=== PATIENT | male | born 1930 | race Caucasian/White ===

== ENCOUNTER 2018-06-29 10:29 | Emergency (ER) | payer MEDICARE, BC ==
[2018-06-29 10:57] VITALS: RESP 18; TEMP 98.5
--- NOTE | 2018-06-29 11:04 | ED ---
General Adult HPI - General Chief complaint: Arrhythmia/Palpitations Stated complaint: HIGH HEART RATE Time Seen by Provider: 06/29/18 10:47 Source: patient, RN notes reviewed, old records reviewed Mode of arrival: wheelchair Limitations: no limitations - History of Present Illness Initial comments: 88-year-old male presented for evaluation of palpitations, racing heart, and mild dyspnea. Patient's symptoms began prior to arrival, he did check his blood pressure heart rate at home. He was noted to have a heart rate in the 140s. He has remote history of arrhythmia status post ablation proximally 5 years ago. Symptoms have resolved with time my evaluation. He no longer reports any dyspnea, he has no palpitations. Denies any pain complaints associated with this sensation of palpitations. Denies any lower extremity pain or swelling. Denies double pain nausea vomiting. Denies fever or chills. - Related Data Home Medications Medication Instructions Recorded Confirmed Atorvastatin [Lipitor] 10 mg PO DAILY@1200 06/29/18 06/29/18 Diltiazem HCl [Diltiazem 24Hr ER] 180 mg PO DAILY 06/29/18 06/29/18 Omeprazole [PriLOSEC] 40 mg PO DAILY 06/29/18 06/29/18 Vit C/E/Zn/Coppr/Lutein/Zeaxan 2 cap PO DAILY 06/29/18 06/29/18 [Preservision Areds 2 Softgel] Allergies Allergy/AdvReac Type Severity Reaction Status Date / Time erythromycin base AdvReac STOMACH Verified 06/29/18 11:07 CRAMPS Sulfa (Sulfonamide AdvReac LOW GRADE Verified 06/29/18 11:07 Antibiotics) FEVER Review of Systems ROS Statement: Those systems with pertinent positive or pertinent negative responses have been documented in the HPI. ROS Other: All systems not noted in ROS Statement are negative. Past Medical History Past Medical History: Hypertension Additional Past Medical History / Comment(s): Kidney disease, cardiac ablation History of Any Multi-Drug Resistant Organisms: None Reported Past Surgical History: Cholecystectomy Additional Past Surgical History / Comment(s): Thyroid surgery Past Psychological History: No Psychological Hx Reported Smoking Status: Former smoker Past Alcohol Use History: None Reported Past Drug Use History: None Reported General Exam Limitations: no limitations General appearance: alert, in no apparent distress Head exam: Present: atraumatic, normocephalic Eye exam: Present: normal appearance, PERRL ENT exam: Present: normal exam Neck exam: Present: normal inspection. Absent: tenderness, meningismus Respiratory exam: Present: normal lung sounds bilaterally. Absent: respiratory distress, wheezes, rales Cardiovascular Exam: Present: regular rate, normal rhythm GI/Abdominal exam: Present: soft. Absent: distended, tenderness, guarding, rebound Extremities exam: Present: normal inspection, normal capillary refill. Absent: pedal edema Neurological exam: Present: alert, oriented X3, CN II-XII intact. Absent: motor sensory deficit Psychiatric exam: Present: normal affect, normal mood Skin exam: Present: warm, dry, intact. Absent: cyanosis, diaphoretic Course Vital Signs 06/29/18 06/29/18 10:53 10:57 Temperature 98.5 F Pulse Rate 90 Pulse Rate [ 100 Refrigerator Assembler ] Respiratory 18 Rate Blood Pressure 122/72 EKG Findings - EKG Comments: EKG Findings:: EKG: Normal sinus rhythm, rate of 90, WI interval 166, QRS duration 82, QTC 43, sinus mechanism, no arrhythmia, no definitive signs of ischemia, no ST segment elevation Medical Decision Making - Medical Decision Making 88-year-old male with an episode of palpitations. Symptoms resolved with time my evaluation. EKG is normal sinus rhythm no ischemic changes. No pain associated with palpitations. He does have some mild dyspnea which is also resolved. He does have history of arrhythmia status post ablation approximate 5 years ago, currently on diltiazem. Denies missing any doses. He, CMP does show creatinine 1.75 which is baseline for this patient with history of chronic kidney disease. Normal electrolytes. Negative troponin. Patient observed on the monitor for 2 half hours, no arrhythmia. Did reevaluate the patient, resting comfortably with stable vitals. He is eager for discharge. He will follow-up with his java architect, return with worsening or changing symptoms. - Lab Data Result diagrams: 06/29/18 11:15 06/29/18 11:15 Lab Results 06/29/18 06/29/18 06/29/18 Range/Units 11:15 11:15 11:15 WBC 9.8 (3.8-10.6) k/uL RBC 3.89 L (4.30-5.90) m/uL Hgb 12.6 L (13.0-17.5) gm/dL Hct 38.9 L (39.0-53.0) % MCV 99.9 (80.0-100.0) fL MCH 32.5 (25.0-35.0) pg MCHC 32.5 (31.0-37.0) g/dL RDW 13.1 (11.5-15.5) % Plt Count 268 (150-450) k/uL Neutrophils % 74 % Lymphocytes % 14 % Monocytes % 7 % Eosinophils % 2 % Basophils % 1 % Neutrophils # 7.2 (1.3-7.7) k/uL Lymphocytes # 1.4 (1.0-4.8) k/uL Monocytes # 0.7 (0-1.0) k/uL Eosinophils # 0.2 (0-0.7) k/uL Basophils # 0.1 (0-0.2) k/uL PT 10.8 (9.0-12.0) sec INR 1.0 (<1.2) APTT 25.0 (22.0-30.0) sec Sodium 143 (137-145) mmol/L Potassium 4.7 (3.5-5.1) mmol/L Chloride 110 H (98-107) mmol/L Carbon Dioxide 25 (22-30) mmol/L Anion Gap 8 mmol/L BUN 25 H (9-20) mg/dL Creatinine 1.75 H (0.66-1.25) mg/dL Est GFR (CKD-EPI)AfAm 40 (>60 ml/min/1.73 sqM) Est GFR (CKD-EPI)NonAf 34 (>60 ml/min/1.73 sqM) Glucose 81 (74-99) mg/dL Calcium 9.5 (8.4-10.2) mg/dL Magnesium 2.0 (1.6-2.3) mg/dL Total Bilirubin 0.9 (0.2-1.3) mg/dL AST 26 (17-59) U/L ALT 23 (21-72) U/L Alkaline Phosphatase 78 (38-126) U/L Troponin I (0.000-0.034) ng/mL Total Protein 6.4 (6.3-8.2) g/dL Albumin 3.5 (3.5-5.0) g/dL 06/29/18 Range/Units 11:15 WBC (3.8-10.6) k/uL RBC (4.30-5.90) m/uL Hgb (13.0-17.5) gm/dL Hct (39.0-53.0) % MCV (80.0-100.0) fL MCH (25.0-35.0) pg MCHC (31.0-37.0) g/dL RDW (11.5-15.5) % Plt Count (150-450) k/uL Neutrophils % % Lymphocytes % % Monocytes % % Eosinophils % % Basophils % % Neutrophils # (1.3-7.7) k/uL Lymphocytes # (1.0-4.8) k/uL Monocytes # (0-1.0) k/uL Eosinophils # (0-0.7) k/uL Basophils # (0-0.2) k/uL PT (9.0-12.0) sec INR (<1.2) APTT (22.0-30.0) sec Sodium (137-145) mmol/L Potassium (3.5-5.1) mmol/L Chloride (98-107) mmol/L Carbon Dioxide (22-30) mmol/L Anion Gap mmol/L BUN (9-20) mg/dL Creatinine (0.66-1.25) mg/dL Est GFR (CKD-EPI)AfAm (>60 ml/min/1.73 sqM) Est GFR (CKD-EPI)NonAf (>60 ml/min/1.73 sqM) Glucose (74-99) mg/dL Calcium (8.4-10.2) mg/dL Magnesium (1.6-2.3) mg/dL Total Bilirubin (0.2-1.3) mg/dL AST (17-59) U/L ALT (21-72) U/L Alkaline Phosphatase (38-126) U/L Troponin I <0.012 (0.000-0.034) ng/mL Total Protein (6.3-8.2) g/dL Albumin (3.5-5.0) g/dL Disposition Clinical Impression: Palpitations Disposition: HOME SELF-CARE Condition: Good Instructions (If sedation given, give patient instructions): Heart Palpitations (ED) Is patient prescribed a controlled substance at d/c from ED?: No Referrals: Tatyana Hanson MD [Primary Care Provider] - 1-2 days Fozia Golden MD [STAFF PHYSICIAN] - 1-2 days Time of Disposition: 13:06
--- NOTE | 2018-06-29 11:37 | XR ---
EXAMINATION TYPE: XR chest 2V DATE OF EXAM: 06/29/2018 HISTORY: dysrhythmia. REFERENCE: Previous study dated 02/28/2011. FINDINGS: Lung volumes are prominent. The heart is normal in size. Pleural spaces are clear. IMPRESSION: PLEASE CORRELATE FOR COPD.
[2018-06-29 11:59] LABS: Basophils # (A) 0.1 k/uL (0-0.2); Basophils % (A) 1 %; Eosinophils # (A) 0.2 k/uL (0-0.7); Eosinophils % (A) 2 %; HCT 38.9 % (39.0-53.0); HGB 12.6 gm/dL (13.0-17.5); Lymphocytes # (A) 1.4 k/uL (1.0-4.8); Lymphocytes % (A) 14 %; MCH 32.5 pg (25.0-35.0); MCHC 32.5 g/dL (31.0-37.0); MCV 99.9 fL (80.0-100.0); Mean Platelet Volume 6.6; Monocytes # (A) 0.7 k/uL (0-1.0); Monocytes % (A) 7 %; Neutrophils # (A) 7.2 k/uL (1.3-7.7); Neutrophils % (A) 74 %; Platelet Count 268 k/uL (150-450); RBC 3.89 m/uL (4.30-5.90); RDW 13.1 % (11.5-15.5); WBC 9.8 k/uL (3.8-10.6)
[2018-06-29 12:05] LABS: Prothrombin Time 10.8 sec (9.0-12.0)
[2018-06-29 12:59] LABS: Albumin 3.5 g/dL (3.5-5.0); Calcium 9.5 mg/dL (8.4-10.2); Potassium 4.7 mmol/L (3.5-5.1); Total Bilirubin 0.9 mg/dL (0.2-1.3); Total Protein 6.4 g/dL (6.3-8.2)
[2018-06-29 13:21] VITALS: BP 121/67; PULSE 73
== END 2018-06-29 13:21 | disposition home or self-care (01) ==
LOC: EC 10:29
DX: R00.2 Palpitations (principal); R00.0 Tachycardia, unspecified; R06.00 Dyspnea, unspecified; I12.9 Hypertensive chronic kidney disease with stage 1 through stage 4 chronic kidney disease, or unspecified chronic kidney disease; N18.9 Chronic kidney disease, unspecified; I49.9 Cardiac arrhythmia, unspecified; Z98.890 Other specified postprocedural states; Z87.891 Personal history of nicotine dependence; Z79.899 Other long term (current) drug therapy; Z88.1 Allergy status to other antibiotic agents; Z88.2 Allergy status to sulfonamides
CPT/HCPCS: 36415; 71046; 80053; 83735; 84484; 85025; 85610; 85730; 93005; 99285

== ENCOUNTER → 2019-11-28 | Outpatient (CLI) | payer MEDICARE, BC ==
--- NOTE | 2019-11-29 07:36 | US ---
EXAMINATION TYPE: US kidneys/renal and bladder DATE OF EXAM: 11/28/2019 COMPARISON: US CLINICAL HISTORY: N18.3 Chronic kidney disease. CKD EXAM MEASUREMENTS: Right Kidney: 9.2 x 4.6 x 4.5 cm Left Kidney: 9.0 x 4.2 x 3.3 cm Right Kidney: Multicystic, largest cyst measured= 3.5 x 2.8 x 3.3 cm Left Kidney: Multicystic, largest cyst measured= 4.3 x 4.0 x 3.9 cm Bladder: Pt states he is incontinent and unable to fill/hold urine within his bladder, unable to visu fernando There is no evidence for hydronephrosis at this point in time. No nephrolithiasis is seen. No solid masses are identified. IMPRESSION: Multiple large bilateral renal cysts.
== END | disposition home or self-care (01) ==
LOC: RADUSWWP 16:14
PROVIDERS: ATTEND Internal Medicine Nephrology
DX: N28.1 Cyst of kidney, acquired (principal); N18.3 Chronic kidney disease, stage 3 (moderate)
CPT/HCPCS: 76770

== ENCOUNTER 2020-09-19 17:02 | Inpatient (IN) | payer MEDICARE, BC ==
--- NOTE | 2020-09-19 17:15 | ED ---
General Adult HPI - General Chief complaint: Chest Pain Stated complaint: STEMI Time Seen by Provider: 09/19/20 17:08 Source: patient, RN/MD, EMS, old records reviewed Mode of arrival: EMS Limitations: no limitations - History of Present Illness Initial comments: Patient was transferred to our ED from the [facility] ED for STEMI. Dr. Lopez (chalk cutter) was contacted from [facility] and he is aware that the patient is being transferred for a STEMI. clinical laboratory scientist was activated prior to the patient's arrival to the ED. Patient reports having constant left-sided chest pain radiating to his left arm for the past 8 or 9 hours or so. Patient has been given 4 baby aspirin, 2 sublingual nitroglycerin, an IV heparin bolus and is currently on an IV heparin drip. Patient states that his chest pain is currently 5/10 in severity. Patient denies trauma or injury, fever or chills, headache, focal neuro deficit, neck/jaw/back pain, neck, cough or cold symptoms, palpitations, dizziness, nausea/vomiting/diaphoresis, abdominal pain, leg or calf swelling or pain, or any other symptoms or complaints. Patient's troponin (obtained at [facility]) was 4. - Related Data Home Medications Medication Instructions Recorded Confirmed Atorvastatin [Lipitor] 10 mg PO DAILY 06/29/18 09/19/20 Diltiazem HCl [Diltiazem 24Hr ER] 180 mg PO DAILY 06/29/18 09/19/20 Vit C/E/Zn/Coppr/Lutein/Zeaxan 2 cap PO DAILY 06/29/18 09/19/20 [Preservision Areds 2 Softgel] Flecainide [Tambocor] 50 mg PO BID 11/13/18 09/19/20 Allergies Allergy/AdvReac Type Severity Reaction Status Date / Time erythromycin base AdvReac STOMACH Verified 09/19/20 17:42 CRAMPS Sulfa (Sulfonamide AdvReac LOW GRADE Verified 09/19/20 17:42 Antibiotics) FEVER Review of Systems ROS Statement: Those systems with pertinent positive or pertinent negative responses have been documented in the HPI. ROS Other: All systems not noted in ROS Statement are negative. Past Medical History Past Medical History: Hypertension, Renal Disease Additional Past Medical History / Comment(s): Kidney disease, cardiac ablation History of Any Multi-Drug Resistant Organisms: None Reported Past Surgical History: Cholecystectomy Additional Past Surgical History / Comment(s): Thyroid surgery Past Anesthesia/Blood Transfusion Reactions: No Reported Reaction Past Psychological History: No Psychological Hx Reported Smoking Status: Former smoker Past Alcohol Use History: None Reported Past Drug Use History: None Reported General Exam Limitations: no limitations General appearance: alert, in no apparent distress Head exam: Present: atraumatic, normocephalic Eye exam: Present: normal appearance, EOMI ENT exam: Present: mucous membranes moist Neck exam: Present: other (Trachea is in midline) Respiratory exam: Present: normal lung sounds bilaterally. Absent: respiratory distress, wheezes, rales, rhonchi, stridor, chest wall tenderness Cardiovascular Exam: Present: regular rate, normal rhythm, normal heart sounds, other (Normal radial pulses bilaterally) GI/Abdominal exam: Present: soft. Absent: distended, tenderness, guarding Extremities exam: Absent: tenderness, pedal edema, calf tenderness Neurological exam: Present: alert, oriented X3. Absent: motor sensory deficit Psychiatric exam: Present: normal affect, normal mood Skin exam: Present: warm, dry, intact, normal color Course Vital Signs 09/19/20 09/19/20 17:06 17:07 Pulse Rate 96 99 Respiratory 16 16 Rate Blood Pressure 144/75 O2 Sat by Pulse 94 L 94 L Oximetry - Reevaluation(s) Reevaluation #1: 09/19/20 17:11 Case and faxed EKG findings (from the [facility]) were discussed with Dr. Lopez (chalk cutter) prior to patient's transfer from [facility]. Dr. Lopez asked that I evaluate the patient in the ED prior to sending the patient to the Mcat Instructor given his age and poor renal function. After ED evaluation of the patient, I called Dr. Lopez and told him that the patient continues to have ST elevations in leads V2 and V3 and he reports having constant chest pain since about 8 or 9 AM this morning. I also told him that the patient reports that his chest pain is currently 5/10 in severity. Given this information, Dr. Lopez recommends taking the patient to the Mcat Instructor. He has no further recommendations at this time. 09/19/20 17:18 Case, H&P, EKG findings and my discussion with Dr. Lopez as above were discussed with Dr. Ambriz. He accepts hospital admission. He has no further recommendations at this time. EKG Findings - EKG Comments: EKG Findings:: Normal sinus rhythm, ventricular rate of 96 bpm, no ectopy, incomplete right bundle branch block, leftward axis, normal LA and QRS intervals, normal QT interval, ST elevations are noted in leads V2 and V3 Medical Decision Making - Medical Decision Making After a quick stop/evaluation in the ED with a repeat EKG obtained, Dr. Lopez was contacted and recommended taking the patient to the aquatic life laborer. Patient was quickly taken to the Mcat Instructor with the aquatic life laborer staff already in the hospital and prepared for the patient. - Lab Data Result diagrams: 09/19/20 17:13 09/19/20 17:13 Lab Results 09/19/20 09/19/20 09/19/20 Range/Units 17:13 17:13 17:13 WBC 11.7 H (3.8-10.6) k/uL RBC 3.77 L (4.30-5.90) m/uL Hgb 12.0 L (13.0-17.5) gm/dL Hct 36.4 L (39.0-53.0) % MCV 96.7 (80.0-100.0) fL MCH 31.8 (25.0-35.0) pg MCHC 32.9 (31.0-37.0) g/dL RDW 13.2 (11.5-15.5) % Plt Count 223 (150-450) k/uL MPV 7.8 Neutrophils % 79 % Lymphocytes % 11 % Monocytes % 7 % Eosinophils % 1 % Basophils % 0 % Neutrophils # 9.3 H (1.3-7.7) k/uL Lymphocytes # 1.3 (1.0-4.8) k/uL Monocytes # 0.8 (0-1.0) k/uL Eosinophils # 0.1 (0-0.7) k/uL Basophils # 0.0 (0-0.2) k/uL PT 11.1 (9.0-12.0) sec INR 1.1 (<1.2) APTT 97.1 H (22.0-30.0) sec Sodium 141 (137-145) mmol/L Potassium 4.2 (3.5-5.1) mmol/L Chloride 106 (98-107) mmol/L Carbon Dioxide 26 (22-30) mmol/L Anion Gap 9 mmol/L BUN 41 H (9-20) mg/dL Creatinine 2.22 H (0.66-1.25) mg/dL Est GFR (CKD-EPI)AfAm 29 (>60 ml/min/1.73 sqM) Est GFR (CKD-EPI)NonAf 25 (>60 ml/min/1.73 sqM) Glucose 107 H (74-99) mg/dL Calcium 9.2 (8.4-10.2) mg/dL Magnesium 2.1 (1.6-2.3) mg/dL Total Bilirubin 0.7 (0.2-1.3) mg/dL AST 49 (17-59) U/L ALT 22 (4-49) U/L Alkaline Phosphatase 79 (38-126) U/L Troponin I (0.000-0.034) ng/mL NT-Pro-B Natriuret Pep pg/mL Total Protein 6.7 (6.3-8.2) g/dL Albumin 4.0 (3.5-5.0) g/dL 09/19/20 09/19/20 Range/Units 17:13 17:13 WBC (3.8-10.6) k/uL RBC (4.30-5.90) m/uL Hgb (13.0-17.5) gm/dL Hct (39.0-53.0) % MCV (80.0-100.0) fL MCH (25.0-35.0) pg MCHC (31.0-37.0) g/dL RDW (11.5-15.5) % Plt Count (150-450) k/uL MPV Neutrophils % % Lymphocytes % % Monocytes % % Eosinophils % % Basophils % % Neutrophils # (1.3-7.7) k/uL Lymphocytes # (1.0-4.8) k/uL Monocytes # (0-1.0) k/uL Eosinophils # (0-0.7) k/uL Basophils # (0-0.2) k/uL PT (9.0-12.0) sec INR (<1.2) APTT (22.0-30.0) sec Sodium (137-145) mmol/L Potassium (3.5-5.1) mmol/L Chloride (98-107) mmol/L Carbon Dioxide (22-30) mmol/L Anion Gap mmol/L BUN (9-20) mg/dL Creatinine (0.66-1.25) mg/dL Est GFR (CKD-EPI)AfAm (>60 ml/min/1.73 sqM) Est GFR (CKD-EPI)NonAf (>60 ml/min/1.73 sqM) Glucose (74-99) mg/dL Calcium (8.4-10.2) mg/dL Magnesium (1.6-2.3) mg/dL Total Bilirubin (0.2-1.3) mg/dL AST (17-59) U/L ALT (4-49) U/L Alkaline Phosphatase (38-126) U/L Troponin I 4.920 H* (0.000-0.034) ng/mL NT-Pro-B Natriuret Pep 95794 pg/mL Total Protein (6.3-8.2) g/dL Albumin (3.5-5.0) g/dL - Radiology Data Radiology results: report reviewed (Chest x-ray: There are new minimal infiltrates in the left lower lobe compared to old exam) Critical Care Time Critical Care Time: Yes Total Critical Care Time: 20 Disposition Clinical Impression: STEMI (ST elevation myocardial infarction), Chronic renal insufficiency Disposition: ADMITTED IP TO THIS HOSP Condition: Stable Is patient prescribed a controlled substance at d/c from ED?: No Time of Disposition: 17:24
[2020-09-19 17:23] LABS: Basophils % (A) 0 %; Eosinophils # (A) 0.1 k/uL (0-0.7); Eosinophils % (A) 1 %; HCT 36.4 % (39.0-53.0); Lymphocytes # (A) 1.3 k/uL (1.0-4.8); Lymphocytes % (A) 11 %; MCH 31.8 pg (25.0-35.0); MCHC 32.9 g/dL (31.0-37.0); MCV 96.7 fL (80.0-100.0); Mean Platelet Volume 7.8; Monocytes # (A) 0.8 k/uL (0-1.0); Monocytes % (A) 7 %; Neutrophils # (A) 9.3 k/uL (1.3-7.7); Neutrophils % (A) 79 %; Platelet Count 223 k/uL (150-450); RBC 3.77 m/uL (4.30-5.90); RDW 13.2 % (11.5-15.5); WBC 11.7 k/uL (3.8-10.6)
[2020-09-19] MEDS ORDERED: SODIUM CHLORIDE 0.9% 1,000 ML IV ONE (17:25)
[2020-09-19] MEDS ORDERED: fentaNYL (PF) 50 MCG/ML 2 ML AMP ONE (17:29)
[2020-09-19] MEDS ORDERED: fentaNYL (PF) 50 MCG/ML 2 ML AMP IV ONE (17:30)
[2020-09-19 17:31] LABS: Calcium 9.2 mg/dL (8.4-10.2); Magnesium 2.1 mg/dL (1.6-2.3); Potassium 4.2 mmol/L (3.5-5.1); Total Bilirubin 0.7 mg/dL (0.2-1.3); Total Protein 6.7 g/dL (6.3-8.2)
[2020-09-19] MEDS ORDERED: LIDOCAINE 1% INJ 10MG/ML (20 ML MDV) SQ ONE (17:33)
--- NOTE | 2020-09-19 17:41 | XR ---
EXAMINATION TYPE: XR chest 1V portable DATE OF EXAM: 09/19/2020 COMPARISON: 06/29/2018 HISTORY: Chest pain TECHNIQUE: FINDINGS: Heart is enlarged. There is some mild infiltrate in left lower lobe. There is no heart fail ure. Thoracic aorta is atheromatous. There are chest leads. Bony thorax is intact. IMPRESSION: There are new minimal infiltrates in the left lower lobe compared to old exam.
[2020-09-19] MEDS ORDERED: HEPARIN SODIUM 1,000 UN/ML (10ML VL) ONE (17:43)
[2020-09-19] MEDS ORDERED: HEPARIN SODIUM 1,000 UN/ML (10ML VL) IV ONE (17:44)
[2020-09-19 17:50] LABS: INR 1.1 (<1.2); Prothrombin Time 11.1 sec (9.0-12.0)
[2020-09-19] MEDS ORDERED: NITROGLYCERIN 1000MCG/10ML SYRINGE INTRACORON ONE (17:50)
[2020-09-19 17:52] LABS: Partial Thromboplastin Time 97.1 sec (22.0-30.0)
[2020-09-19] MEDS ORDERED: CLOPIDOGREL 75 MG TAB ONE (17:52)
[2020-09-19] MEDS ORDERED: HYDROmorphone 0.5 MG/0.5 ML SYRINGE IVP ONE (17:53)
[2020-09-19] MEDS ORDERED: ONDANSETRON 4 MG/2 ML VIAL ONE (17:54)
[2020-09-19] MEDS ORDERED: ONDANSETRON 4 MG/2 ML VIAL IVP ONE (17:56)
[2020-09-19] MEDS ORDERED: CLOPIDOGREL 75 MG TAB PO ONE (17:57)
[2020-09-19] MEDS ORDERED: IOPAMIDOL-370 125ML BTL INJ ONE (17:57)
[2020-09-19] MEDS ORDERED: RX INFO: IV CONTRAST WAS GIVEN 1 EACH MISC MISCELLANE PRN (18:02)
[2020-09-19] MEDS ORDERED: ZOLPIDEM 5 MG TAB PO PRN (18:02)
[2020-09-19] MEDS ORDERED: NITROGLYCERIN SL TABS 0.4 MG TAB SUBLINGUAL PRN (18:02)
[2020-09-19] MEDS ORDERED: MAG HYDROX/AL HYDROX/SIMETH 30 ML CUP PO PRN (18:02)
[2020-09-19] MEDS ORDERED: ATROPINE SULFATE 0.1 MG/ML 10ML SYRINGE IV PRN (18:02)
--- NOTE | 2020-09-19 18:12 | P.CRDCN ---
History of Present Illness Consult date: 09/19/20 Chief complaint: chest pain History of present illness: This is a very pleasant 89-year-old gentleman who was in good physical and mental shape with a past medical history significant for hypertension as well as chronic kidney disease who presented to [facility] complaining of chest discomfort started about 6 hours before. The patient described the discomfort as a pressure across the chest with radiation to the left arm. No associated symptoms of sweating or syncope or shortness of breath or dizziness or lightheadedness. The initial EKG revealed sinus rhythm with ST segment elevation in the anteroseptal leads. Because the patient continues to have a chest discomfort and because of the EKG which was concerning for STEMI he was transferred for emergent heart catheterization here at [facility]. Emergent heart catheterization revealed critical disease involving the mid LAD which was opened and stented with an a good angiographic results was BESS-3 flow. By the end of the procedure the patient was chest pain-free. The procedure was performed from the right groin. The patient will be on dual antiplatelet therapy along with high intensity statin along with anti-ischemic medication and he will be admitted to the hospital for observation. We'll obtain an echocardiogram to establish LV function. Past Medical History Past Medical History: Hypertension, Renal Disease Additional Past Medical History / Comment(s): Kidney disease, cardiac ablation History of Any Multi-Drug Resistant Organisms: None Reported Past Surgical History: Cholecystectomy Additional Past Surgical History / Comment(s): Thyroid surgery Past Anesthesia/Blood Transfusion Reactions: No Reported Reaction Past Psychological History: No Psychological Hx Reported Smoking Status: Former smoker Past Alcohol Use History: None Reported Past Drug Use History: None Reported Medications and Allergies Home Medications Medication Instructions Recorded Confirmed Type Atorvastatin [Lipitor] 10 mg PO DAILY 06/29/18 09/19/20 History Diltiazem HCl [Diltiazem 24Hr ER] 180 mg PO DAILY 06/29/18 09/19/20 History Vit C/E/Zn/Coppr/Lutein/Zeaxan 2 cap PO DAILY 06/29/18 09/19/20 History [Preservision Areds 2 Softgel] Flecainide [Tambocor] 50 mg PO BID 11/13/18 09/19/20 History Allergies Allergy/AdvReac Type Severity Reaction Status Date / Time erythromycin base AdvReac STOMACH Verified 09/19/20 17:42 CRAMPS Sulfa (Sulfonamide AdvReac LOW GRADE Verified 09/19/20 17:42 Antibiotics) FEVER Physical Exam Vitals: Vital Signs Pulse Resp BP Pulse Ox 09/19/20 17:07 99 16 94 L 09/19/20 17:06 96 16 144/75 94 L Intake and Output 09/19/20 09/19/20 09/19/20 06:59 14:59 22:59 Intake Total 50 Balance 50 Intake: IV 50 Other: Weight 68.1 kg - Constitutional General appearance: no acute distress - Respiratory Respiratory: bilateral: diminished - Cardiovascular Rhythm: regular Heart sounds: normal: S1, S2 Abnormal Heart Sounds: systolic murmur Results 09/19/20 17:13 09/19/20 17:13 Cardiac Enzymes 09/19/20 09/19/20 Range/Units 17:13 17:13 AST 49 (17-59) U/L Troponin I 4.920 H* (0.000-0.034) ng/mL Coagulation 09/19/20 Range/Units 17:13 PT 11.1 (9.0-12.0) sec APTT 97.1 H (22.0-30.0) sec CBC 09/19/20 Range/Units 17:13 WBC 11.7 H (3.8-10.6) k/uL RBC 3.77 L (4.30-5.90) m/uL Hgb 12.0 L (13.0-17.5) gm/dL Hct 36.4 L (39.0-53.0) % Plt Count 223 (150-450) k/uL Comprehensive Metabolic Panel 09/19/20 Range/Units 17:13 Sodium 141 (137-145) mmol/L Potassium 4.2 (3.5-5.1) mmol/L Chloride 106 (98-107) mmol/L Carbon Dioxide 26 (22-30) mmol/L BUN 41 H (9-20) mg/dL Creatinine 2.22 H (0.66-1.25) mg/dL Glucose 107 H (74-99) mg/dL Calcium 9.2 (8.4-10.2) mg/dL AST 49 (17-59) U/L ALT 22 (4-49) U/L Alkaline Phosphatase 79 (38-126) U/L Total Protein 6.7 (6.3-8.2) g/dL Albumin 4.0 (3.5-5.0) g/dL Intake and Output 09/19/20 09/19/20 09/19/20 06:59 14:59 22:59 Intake Total 50 Balance 50 Intake: IV 50 Other: Weight 68.1 kg Patient Weight 09/20/20 06:59 Weight 68.1 kg 09/19/20 17:13 09/19/20 17:13 Assessment and Plan Assessment: Assessment #[address] patient myocardial infarction #2 hypertension #3 chronic kidney disease Plan #1 the patient underwent stenting of the LAD #2 we'll obtain an echocardiogram to establish LV function #3 standard to groin care #4 dual antiplatelet therapy #5 aggressive cholesterol control #6 anti-ischemic medication Thank you for allowing us participate in his care
--- NOTE | 2020-09-19 19:30 | CC ---
CARDIAC CATHETERIZATION REPORT DATE OF SERVICE: 09/19/2020 PERFORMING PHYSICIAN: Tommy Lopez MD. PROCEDURE PERFORMED: 1. Selective left and right coronary angiogram. 2. Successful stenting of the mid left anterior descending artery using 3.0 x 18 mm Xience drug-eluting stent which was post-dilated using 3.5 mm NC balloon with an excellent angiographic results and reduction of stenosis from 99% to 0%. 3. Left heart catheterization. 4. Selective right common femoral artery angiogram. INDICATION: This is a very pleasant 89-year-old male patient who is in good physical and mental shape who presented initially to [facility] with chest discomfort and EKG concerning for anterior ST-elevation myocardial infarction. Because of that, he was transferred to [facility] for an emergent heart catheterization. APPROACH: Right common femoral artery. COMPLICATION: None. LEVEL OF SEDATION: Moderate with sedation length of 26 minutes. Door to door to balloon is 195 minutes. PROCEDURE DESCRIPTION: After obtaining an informed consent, the patient was brought to the cardiac wharf labourer. The right common femoral artery was cannulated using micropuncture technique, the micropuncture wire passed easily. Then I placed a 6-Persian sheath in the right common femoral artery. At that point, ACT check was performed. Selective left and right coronary angiogram performed using JL 3.5 and JR4 3.5 catheters. After that, I did intervene on the left anterior descending artery. Please see a separate paragraph for that. After that, I did left heart catheterization. I did after that left selective right common femoral artery angiogram. The procedure was completed without any complication. SELECTIVE CORONARY ANGIOGRAM: 1. The right coronary artery is a medium caliber vessel and it is a nondominant vessel. The RCA has a lesion in the midportion appeared to be in the range of 60% to 70%. 2. The left main is a short left main but angiographically normal. It bifurcates into a dominant left circumflex as well as LAD. 3. The LCX is a large caliber vessel. It is a dominant vessel. The proximal left circumflex has a lesion appeared to be in the range of 30% to 40%. The mid left circumflex appeared to be angiographically normal and the circumflex distally is normal and bifurcates into PDA and PLV branches both appeared to be angiographically normal. The left circumflex gives rise into first and second obtuse marginal branches. Both appeared to be angiographically normal. 4. The LAD: The very proximal LAD appeared to have mild disease only. The mid LAD has a critical lesion appeared to be in the range of 90-95 percent with a thrombus burden. The mid LAD and after that distal LAD appeared to have mild disease only. The LAD gives rise into 3 diagonal branches. HEMODYNAMICS: The LVEDP was 13 mmHg without significant gradient across the aortic valve. PCI OF THE LAD: Anticoagulation was achieved using only heparin with continuous ACT monitoring throughout the procedure. I did engage the left main using JL3.5 short tip guiding catheter. After that, I did wire the LAD using a Whisper wire. Balloon angioplasty was achieved using 2.5 x 12 mm balloon before I deployed 3.0 x 18 mm Xience drug-eluting stent where the stent was positioned under fluoroscopy guidance and deployed under its nominal pressure. Postdilatation was performed using a 3.5 mm NC balloon. The procedure was completed at that point with an excellent angiographic results. CONCLUSION: 1. Acute anterior ST-elevation myocardial infarction in this 89-year-old gentleman who presented initially to [facility]. 2. 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 I performed successful stenting of the mid LAD with excellent angiographic results. 3. Normal LVEDP. POSTPROCEDURE MANAGEMENT: 1. Dual anti-platelet therapy. 2. Aggressive cholesterol control. 3. An echocardiogram to assess the ejection fraction. 4. Follow up with the patient. IDRIS / CRISTIANO: [id number] /
[2020-09-19] MEDS: ATORVASTATIN 80 MG TAB PO SCH (21:30)
[2020-09-19] MEDS: METOPROLOL TARTRATE 25 MG TAB PO SCH (21:30)
[2020-09-20 08:34] LABS: Albumin 2.9 g/dL (3.5-5.0); Calcium 8.4 mg/dL (8.4-10.2); Potassium 4.7 mmol/L (3.5-5.1); Total Bilirubin 1.1 mg/dL (0.2-1.3); Total Protein 5.3 g/dL (6.3-8.2)
[2020-09-20] MEDS: METOPROLOL TARTRATE 25 MG TAB PO SCH ×2 (08:35→19:57)
[2020-09-20] MEDS: ASPIRIN 81 MG PO SCH (08:35)
[2020-09-20 09:19] LABS: Basophils % (A) 0 %; Eosinophils % (A) 0 %; HCT 35.9 % (39.0-53.0); HGB 11.1 gm/dL (13.0-17.5); Lymphocytes % (A) 6 %; MCH 31.5 pg (25.0-35.0); MCV 101.6 fL (80.0-100.0); Macrocytosis Slight; Mean Platelet Volume 8.1; Monocytes # (A) 1.3 k/uL (0-1.0); Monocytes % (A) 8 %; Neutrophils # (A) 13.5 k/uL (1.3-7.7); Neutrophils % (A) 84 %; Platelet Count 196 k/uL (150-450); RBC 3.54 m/uL (4.30-5.90); RDW 13.3 % (11.5-15.5); WBC 16.2 k/uL (3.8-10.6)
[2020-09-20 11:06] VITALS: BMI 21.4
--- NOTE | 2020-09-20 11:10 | ECHOF ---
Referral Reason:STEMI MEASUREMENTS -------- HEIGHT: 175.3 cm WEIGHT: 65.8 kg BP: 111/71 IVSd: 0.9 cm (0.6 - 1.1) LVIDd: 4.3 cm (3.9 - 5.3) LVPWd: 0.9 cm (0.6 - 1.1) IVSs: 1.2 cm LVIDs: 3.9 cm LVPWs: 1.3 cm Ao Diam: 4.1 cm (2.0 - 3.7) AV Cusp: 1.7 cm (1.5 - 2.6) LA Diam: 3.1 cm (2.7 - 3.8) MV E Walter: 0.55 m/s MV DecT: 150 ms MV A Walter: 0.55 m/s MV E/A Ratio: 1.00 AR PHT: 710 ms RAP: 5.00 mmHg RVSP: 26.66 mmHg FINDINGS -------- Sinus rhythm. This was a technically difficult study with suboptimal views. The left ventricular size is normal. Left ventricular wall thickness is normal. Overall left vent ricular systolic function is severely impaired with, an EF between 20 - 25 %. Mid anterior LV wall motion is akinetic. Mid lateral LV wall motion is akinetic. Mid anteroseptal LV wall motion is akinetic. Apical anterior LV wall motion is akinetic. Apical lateral LV wall motion is akinetic . Apical inferior LV wall motion is akinetic. Apical septum LV wall motion is akinetic. The RV was not well visualized. The left atrial size is normal. The right atrium was not well visualized. Lumason used The aortic valve was not well visualized. There is moderate aortic regurgitation. Mild mitral annular calcification present. There is trace mitral regurgitation. The tricuspid valve appears structurally normal. Moderate tricuspid regurgitation present. Right ventricular systolic pressure is normal at < 35 mmHg. The pulmonic valve was not well visualized. The aortic root size is normal. Normal inferior vena cava with normal inspiratory collapse consistent with estimated right atrial pre ssure of 5 mmHg. There is no pericardial effusion. CONCLUSIONS -------- 1. This was a technically difficult study with suboptimal views. 2. The left ventricular size is normal. 3. Left ventricular wall thickness is normal. 4. Overall left ventricular systolic function is severely impaired with, an EF between 20 - 25 %. 5. Mid anterior LV wall motion is akinetic. 6. Mid lateral LV wall motion is akinetic. 7. Mid anteroseptal LV wall motion is akinetic. 8. Apical anterior LV wall motion is akinetic. 9. Apical lateral LV wall motion is akinetic. 10. Apical inferior LV wall motion is akinetic. 11. Apical septum LV wall motion is akinetic. 12. The left atrial size is normal. 13. There is moderate aortic regurgitation. 14. There is trace mitral regurgitation. 15. Moderate tricuspid regurgitation present. 16. There is no pericardial effusion. WILDLIFE ECOLOGY PROFESSOR: Catie Monk RDCS
--- NOTE | 2020-09-20 12:13 | P.PN ---
Subjective This is a very pleasant 89-year-old gentleman with a past medical history significant for hypertension, chronic kidney disease. He does not have a history of Diabetes, [place], stroke, or coronary artery disease. He presented to [facility] complaining of chest discomfort started about 6 hours before. The patient described the discomfort as a pressure across the chest with radiation to the left arm. The initial EKG revealed sinus rhythm with ST segment elevation in the anteroseptal leads. Because the patient continues to have a chest discomfort a nd because of the EKG which was concerning for STEMI he was transferred for emergent heart catheterization here at [facility]. Patient underwent heart catheterization on 09/19/[address] Lopez which revealed critical disease involving the mid LAD which was stented. The procedure was performed from the right groin. 09/20/2020: Patient seen and examined at bedside, no acute distress. Sitting up in the bedside chair. He does have some mild shortness of breath with deep breathing. Patient is ambulating in the room Blood pressure 92/54, heart rate 70, afebrile, maintaining oxygen saturations 90% on 2 L nasal cannula. He's currently being maintained on aspirin 81 mg daily, atorvastatin 80 mg nightly, Plavix 75 mg daily, lisinopril 2.5 mg daily, metoprolol titrate 25 mg twice a day. E reviewed WBC 16.2, hemoglobin 11.1, sodium 140, potassium 4.7, BUN 34, serum creatinine 1.6, magnesium 2.1, GENERAL: Well-appearing, well-nourished and in no acute distress. NECK: Supple without JVD or thyromegaly. LUNGS: Breath sounds clear to auscultation bilaterally. Respiration equal and u nlabored. No wheezes, rales or rhonchi. HEART: Regular rate and rhythm without murmurs, rubs or gallops. S1 and S2 heard. EXTREMITIES: Normal range of motion, no edema. No clubbing or cyanosis. Right groin site open to air, no hematoma, Peripheral pulses intact. ASSESSMENT: Acute anterior STEMI s/p PCI to LAD Hypertension Leukocytosis Chronic Kidney Disease PLAN: -Echocardiogram ordered will follow up on results -Will repeat chest xray tomorrow morning -Continue dual antiplatelet therapy -Continue beta jesi, ACEI and statin -Further recommendations pending clinical course Objective - Vital Signs Vital signs: Vital Signs Temp 97.9 F 09/20/20 07:55 Pulse 67 09/20/20 11:25 Resp 16 09/20/20 11:25 BP 81/48 09/20/20 11:25 Pulse Ox 97 09/20/20 11:25 Intake & Output 09/19/20 09/20/20 09/20/20 18:59 06:59 18:59 Intake Total 50 240 Output Total 200 Balance 50 -200 240 Weight 68.1 kg 66 kg 66 kg Intake: IV 50 Oral 240 Output: Urine 200 Other: Voiding Method Indwelling Catheter Indwelling Catheter - Labs CBC & Chem 7: 09/20/20 07:32 09/20/20 07:32 Labs: Abnormal Lab Results - Last 24 Hours (Table) 09/19/20 09/19/20 09/19/20 Range/Units 17:13 17:13 17:13 WBC 11.7 H (3.8-10.6) k/uL RBC 3.77 L (4.30-5.90) m/uL Hgb 12.0 L (13.0-17.5) gm/dL Hct 36.4 L (39.0-53.0) % MCV (80.0-100.0) fL Neutrophils # 9.3 H (1.3-7.7) k/uL Monocytes # (0-1.0) k/uL APTT 97.1 H (22.0-30.0) sec Chloride (98-107) mmol/L BUN 41 H (9-20) mg/dL Creatinine 2.22 H (0.66-1.25) mg/dL Glucose 107 H (74-99) mg/dL Troponin I (0.000-0.034) ng/mL Total Protein (6.3-8.2) g/dL Albumin (3.5-5.0) g/dL 09/19/20 09/20/20 09/20/20 Range/Units 17:13 07:32 07:32 WBC 16.2 H (3.8-10.6) k/uL RBC 3.54 L (4.30-5.90) m/uL Hgb 11.1 L (13.0-17.5) gm/dL Hct 35.9 L (39.0-53.0) % MCV 101.6 H (80.0-100.0) fL Neutrophils # 13.5 H (1.3-7.7) k/uL Monocytes # 1.3 H (0-1.0) k/uL APTT (22.0-30.0) sec Chloride 110 H (98-107) mmol/L BUN 34 H (9-20) mg/dL Creatinine 1.69 H (0.66-1.25) mg/dL Glucose 112 H (74-99) mg/dL Troponin I 4.920 H* (0.000-0.034) ng/mL Total Protein 5.3 L (6.3-8.2) g/dL Albumin 2.9 L (3.5-5.0) g/dL
[2020-09-20] MEDS: ATORVASTATIN 80 MG TAB PO SCH (19:57)
--- NOTE | 2020-09-20 20:23 | P.HPIM ---
History of Present Illness H&P Date: 09/20/20 Leo Marsh, is an 89-year-old male who presented to an outside hospital with a chief complaint of chest pain he was evaluated in the emergency room and had evidence of acute ST elevation myocardial infarction he was transferred to [facility] for further evaluation and treatment. Patient was brought immediately to cardiac lab, he underwent cardiac catheterization on presentation and underwent angioplasty and stent placement to the LAD, patient was admitted to telemetry floor postprocedure. Today patient is alert and oriented 3 in no apparent distress his vital examination reveals a temperature of 97.9 pulse 78 respiration 18 blood pressure 92/54 pulse ox 99% on 2 L nasal cannula. His laboratory data on presentation to [facility] revealed white blood count of 11.7 hemoglobin 12.0 platelet count 223 BUN 41 creatinine 2.2 troponin level was 4.92. His past medical history is significant for history of hypertension and history of chronic kidney disease, he also had a history of cardiac ablation in the past. Patient also has a known history of thyroid surgery for thyroid cancer, he is not on any thyroid medication at this time. Past Medical History Past Medical History: Hypertension, Renal Disease Additional Past Medical History / Comment(s): Kidney disease, cardiac ablation History of Any Multi-Drug Resistant Organisms: None Reported Past Surgical History: Cholecystectomy Additional Past Surgical History / Comment(s): Thyroid surgery Past Anesthesia/Blood Transfusion Reactions: No Reported Reaction Past Psychological History: No Psychological Hx Reported Smoking Status: Former smoker Past Alcohol Use History: None Reported Past Drug Use History: None Reported - Past Family History Father History Unknown: Yes Medications and Allergies Home Medications Medication Instructions Recorded Confirmed Type Atorvastatin [Lipitor] 10 mg PO DAILY 06/29/18 09/19/20 History Diltiazem HCl [Diltiazem 24Hr ER] 180 mg PO DAILY 06/29/18 09/19/20 History Vit C/E/Zn/Coppr/Lutein/Zeaxan 2 cap PO DAILY 06/29/18 09/19/20 History [Preservision Areds 2 Softgel] Flecainide [Tambocor] 50 mg PO BID 11/13/18 09/19/20 History Allergies Allergy/AdvReac Type Severity Reaction Status Date / Time erythromycin base AdvReac STOMACH Verified 09/19/20 17:42 CRAMPS Sulfa (Sulfonamide AdvReac LOW GRADE Verified 09/19/20 17:42 Antibiotics) FEVER Physical Exam Vitals: Vital Signs Temp Pulse Pulse Resp BP BP BP 09/20/20 11:25 67 16 81/48 82/52 09/20/20 07:55 97.9 F 78 18 92/54 09/20/20 04:00 79 18 101/55 09/20/20 01:56 85 18 09/20/20 00:00 85 18 101/53 09/19/20 21:47 96 18 104/54 09/19/20 20:47 98 18 111/58 09/19/20 20:00 98 111/56 09/19/20 19:47 99 113/58 09/19/20 19:17 95 116/59 09/19/20 18:47 98 120/58 09/19/20 18:32 97 141/68 09/19/20 17:07 99 16 09/19/20 17:06 96 16 144/75 Pulse Ox 09/20/20 11:25 97 09/20/20 07:55 99 09/20/20 04:00 98 09/20/20 01:56 09/20/20 00:00 100 09/19/20 21:47 98 09/19/20 20:47 99 09/19/20 20:00 100 09/19/20 19:47 100 09/19/20 19:17 100 09/19/20 18:47 95 09/19/20 18:32 88 L 09/19/20 17:07 94 L 09/19/20 17:06 94 L Intake and Output 09/19/20 09/20/20 09/20/20 22:59 06:59 14:59 Intake Total 50 627 Output Total 200 200 Balance 50 -200 427 Intake: IV 50 150 0.9 ms 150 Oral 477 Output: Urine 200 200 Other: Voiding Method Indwelling Catheter Indwelling Catheter Indwelling Catheter Weight 68.1 kg 66 kg 66 kg In general patient is alert and oriented x3 in no distress HEENT head normocephalic and atraumatic Neck is supple no JVD no goiter no lymphadenopathy no carotid bruit Chest examination is clear to auscultation no crackles no wheezing Cardiac exam reveals regular heart sounds S1 and S2 no gallops no murmurs Abdomen is soft nontender no organomegaly with normal bowel sounds Extremity exam reveals no edema no cyanosis or clubbing Neurological examination reveals no gross focal deficits Results CBC & Chem 7: 09/20/20 07:32 09/20/20 07:32 Labs: Abnormal Lab Results - Last 24 Hours (Table) 09/19/20 09/19/20 09/19/20 Range/Units 17:13 17:13 17:13 WBC 11.7 H (3.8-10.6) k/uL RBC 3.77 L (4.30-5.90) m/uL Hgb 12.0 L (13.0-17.5) gm/dL Hct 36.4 L (39.0-53.0) % MCV (80.0-100.0) fL Neutrophils # 9.3 H (1.3-7.7) k/uL Monocytes # (0-1.0) k/uL APTT 97.1 H (22.0-30.0) sec Chloride (98-107) mmol/L BUN 41 H (9-20) mg/dL Creatinine 2.22 H (0.66-1.25) mg/dL Glucose 107 H (74-99) mg/dL Troponin I (0.000-0.034) ng/mL Total Protein (6.3-8.2) g/dL Albumin (3.5-5.0) g/dL 09/19/20 09/20/20 09/20/20 Range/Units 17:13 07:32 07:32 WBC 16.2 H (3.8-10.6) k/uL RBC 3.54 L (4.30-5.90) m/uL Hgb 11.1 L (13.0-17.5) gm/dL Hct 35.9 L (39.0-53.0) % MCV 101.6 H (80.0-100.0) fL Neutrophils # 13.5 H (1.3-7.7) k/uL Monocytes # 1.3 H (0-1.0) k/uL APTT (22.0-30.0) sec Chloride 110 H (98-107) mmol/L BUN 34 H (9-20) mg/dL Creatinine 1.69 H (0.66-1.25) mg/dL Glucose 112 H (74-99) mg/dL Troponin I 4.920 H* (0.000-0.034) ng/mL Total Protein 5.3 L (6.3-8.2) g/dL Albumin 2.9 L (3.5-5.0) g/dL Thrombosis Risk Factor Assmnt - Choose All That Apply Each Risk Factor Represents 3 Points: Age 75 years or older Thrombosis Risk Factor Assessment Total Risk Factor Score: 3 Thrombosis Risk Factor Assessment Level: Moderate Risk Assessment and Plan Plan: Acute ST-T wave elevation myocardial infarction Underlying history of hypertension Underlying history of chronic kidney disease History of thyroid surgery will check TSH and free T4 Patient is followed by cardiology he underwent cardiac catheterization with salvador nt placement to the LAD He was started on Plavix and aspirin and Lipitor 80 mg daily He was also started on metoprolol 25 mg twice daily and low dose of lisinopril 2.5 mg daily Will monitor kidney function closely Will recheck in a.m.
[2020-09-21] MEDS ORDERED: METOPROLOL TARTRATE 50 MG TAB PO SCH (06:00)
--- NOTE | 2020-09-21 07:13 | XR ---
EXAMINATION TYPE: XR chest 1V portable DATE OF EXAM: 09/21/2020 COMPARISON: 09/19/2020 HISTORY: Short of breath TECHNIQUE: Single frontal view of the chest is obtained. FINDINGS: The lungs are hyperinflated. There is new blunting of the left costophrenic angle. Cardiac silhouette is unchanged. IMPRESSION: New blunting of the left costophrenic angle, likely represents small amount of pleural-parenchymal di sease.
[2020-09-21 07:43] LABS: Calcium 8.2 mg/dL (8.4-10.2); Potassium 4.3 mmol/L (3.5-5.1)
[2020-09-21] MEDS ORDERED: DILTIAZEM CD 180 MG CAP.ER.24H PO SCH (09:00)
[2020-09-21] MEDS: ASPIRIN 81 MG PO SCH (09:25)
[2020-09-21] MEDS: CLOPIDOGREL 75 MG TAB PO SCH (09:25)
[2020-09-21] MEDS: APIXABAN 2.5 MG TABLET PO SCH ×2 (11:05→19:59)
--- NOTE | 2020-09-21 12:53 | CDI ---
Documentation Clarification Form Date: 09/21/2020 12:45:49 PM From: Ankita Felix CCS, CCDS Admit Date: 09/19/2020 05:22:00 PM Patient Name: Leo Marsh Visit Number: [id number] Discharge Date: ATTENTION: The Clinical Documentation Specialists (CDI) and [facility] Coding Staff appreciate your assistance in clarifying documentation. Please respond to the clarification below the line at the bottom and electronically sign. The CDI & [facility] Coding staff will review the response and follow-up if needed. Please note: Queries are made part of the Legal Health Record. If you have any questions, please contact the author of this message via ITS. Dr. Ricardo Ambriz: Unspecified CKD is documented in the 09/20 H/P: "Underlying history of chronic kidney disease." Nephrology is not consulted. Additional clarification regarding the stage of CKD is requested. History/Risk Factors per the 09/20 H/P: Hypertension, CKD, Thyroid Cancer status post surgery, Former smoker. Clinical Indicators: Presented to the ED on 09/20 via EMS from [facility] ED with chest pain radiating to left arm, diagnosed with STEMI & transferred to [facility] for Heart Catheterization. 09/20 Heart Catheterization & PTCA with Stent to LAD. Historical GFR (02/02/2016): 40, 48. Current BUN: 40, 34, 40; Creatinine 2.22, 1.69, 1.65; GFR 25 - 35, 36 Treatment 09/19: IV NaCl, IV Heparin, IV Dilaudid, IV Zofran, po Plavix Please clarify the stage of the CKD, if known: [ ] CKD Stage 3 (GFR 30-59) [ ] CKD Stage 3a (GFR 45-59) [ ] CKD Stage 3b (GFR 30-44) [ ] CKD Stage 4 (GFR 15-29) [ ] Other, please specify [ ] Unable to determine (Template Last revised: May 2020) Chronic kidney disease stage IV MTDD
--- NOTE | 2020-09-21 13:22 | P.PN ---
Subjective This is a very pleasant 89-year-old gentleman with a past medical history significant for AVNRT s/p ablation, nonrheumatic aortic regurgitation, left leg claudication, hyperlipidemia, hypertension, chronic kidney disease. He follows in the office with Dr. Martinez. He does not have a history of Diabetes, [place], stroke, or coronary artery disease. He presented to [facility] complaining of chest discomfort started about 6 hours before. The patient described the discomfort as a pressure across the chest with radiation to the left arm. The initial EKG revealed sinus rhythm with ST segment elevation in the anteroseptal leads. Because the patient continues to have a chest discomfort and because of the EKG which was concerning for STEMI he was transferred for emergent heart catheterization here at [facility]. Patient underwent heart ca theterization on 09/19/[address] Lopez which revealed critical disease involving the mid LAD which was stented. The procedure was performed from the right groin. Patient's home medications include flecainide 50mg BID, Cardizem 180mg daily, aspirin 81mg daily, lipitor 10mg daily. Echocardiogram 09/2017 in the office, EF 55%, normal diastolic function, mild concentric hypertrophy, moderate aortic regurgitation, mild mitral regurgitation, moderate tricuspid regurgitation 09/20/2020 Echocardiogram revealed EF 20-25%, global hypokinesis, moderate aortic regurgitation, trace mitral regurgitation, moderate tricuspid regurgitation 09/21/2020: This morning patient went into atrial fibrillation heart rate in the 80s. Patient denies chest pain, shortness of breath, palpitations, lightheadedness or dizziness. Chest x-ray revealed new left costophrenic angle representing small amount of pleural/parenchymal disease. Laboratory data reviewed sodium 138, BUN 40, serum creatinine 1.65. Blood pressure 81/45, heart rate 80, afebrile, maintaining oxygen saturation is 90% on room air. Patient currently maintained on aspirin 81 mg daily, atorvastatin 80 mg daily, Plavix 75 mg daily, lisinopril 2.5 mg daily, metoprolol tartrate 50 mg in the morning and 25 mg at night GENERAL: Well-appearing, well-nourished and in no acute distress. NECK: Supple without JVD or thyromegaly. LUNGS: Breath sounds clear to auscultation bilaterally. Respiration equal and unlabored. No wheezes, rales or rhonchi. HEART: Irregular rate and rhythm without murmurs, rubs or gallops. S1 and S2 heard. EXTREMITIES: Normal range of motion, no edema. No clubbing or cyanosis. Right groin site open to air, no hematoma, Peripheral pulses intact. ASSESSMENT: Acute anterior STEMI s/p PCI to LAD Paroxysmal atrial fibrillation, [id number] score 5 Ischemic cardiomyopathy EF 20-25% History of Hypertension- hypotensive here Leukocytosis History of AVNRT s/p ablation Nonrheumatic moderate aortic regurgitation History of Left leg claudication Dyslipidemia Chronic Kidney Disease PLAN: -Discussed anticoagulation, atrial fibrillation and risk of stroke and risk of bleeding with patient and patient's sister. Patient is agreeable to anticoagulation. Daughter is agreeable to anticoagulation but she is overall concerned with her brother's physical activity and not able to walk up 14 steps up to his apartment. She believes that he will not be able to take care of himself at home and not be able to get up and down those steps. She mentioned that her brother would most likely benefit from Rehab. This was discussed with the patient's nurse. -We will start Eliquis 2.5mg BID due to patient's kidney function. Will consult to case management to assist in coverage. -Will transition back to metoprolol tartrate 25mg BID -Continue dual antiplatelet therapy and statin -Continue ACEI at this time, will continue to monitor blood pressure -Continue cardiac telemetry -Follow up with Dr. Martinez on discharge -Further recommendations pending clinical course Objective - Vital Signs Vital signs: Vital Signs Temp 97.9 F 09/21/20 12:00 Pulse 80 09/21/20 12:00 Resp 18 09/21/20 12:00 BP 104/57 09/21/20 12:00 Pulse Ox 96 09/21/20 12:00 Intake & Output 09/20/20 09/21/20 09/21/20 18:59 06:59 18:59 Intake Total 627 360 Output Total 200 850 150 Balance 427 -850 210 Weight 66 kg 68.5 kg Intake: IV 150 0.9 ms 150 Oral 477 360 Output: Urine 200 850 150 Other: Voiding Method Indwelling Catheter Indwelling Catheter Indwelling Catheter - Labs CBC & Chem 7: 09/20/20 07:32 09/21/20 07:01 Labs: Abnormal Lab Results - Last 24 Hours (Table) 09/21/20 Range/Units 07:01 Chloride 109 H (98-107) mmol/L BUN 40 H (9-20) mg/dL Creatinine 1.65 H (0.66-1.25) mg/dL Calcium 8.2 L (8.4-10.2) mg/dL
--- NOTE | 2020-09-21 15:33 | P.CONS ---
History of Present Illness - Chief Complaint Cardiac debility - History of Present Illness I had the opportunity to see patient for inpatient rehab consultation with regard to cardiac debility. Patient admitted to [facility] September 19 as a transfer from [facility] with STEMI. Underwent emergency catheterization and stent, Dr. Lopez. Seen by Dr. binh wood for medical. Chest x-rays followed demonstrate mild left costophrenic angle blunting. His started therapies. PT reports minimal assistance for bed mobility, transfers, gait 13 feet with roller walker. OT reports supervision for upper dressing and minimal will stress for lower dressing and bathing. 2 person minimal assist for toileting and toilet transfers. Previous functional history as elicited from patient: 89-year-old right-handed white male who is single lives and 2 floor home with sister and brother in law. Sister does the cooking and the [id number] does the driving. Patient independent with own laundry, standing shower and gait with standard cane. PCP Dr. Hanson. Denies tobacco or alcohol. Family history father was a smoker. Review of Systems Review of systems: ENT: Denies sneezes or discharge. Eyes: Denies discharge or photophobia. Cardiac: Denies chest pain or palpitation. Pulmonary: Denies cough or shortness of breath. Gastrointestinal: Denies nausea, emesis, constipation, diarrhea. Genitourinary: Denies discharge or frequency. Musculoskeletal: Stiffness in legs, normal. Neurologic: Mild generalized weakness. Endocrine: Denies shakes or sweats. Oncology: Denies cancers. Dermatologic: Denies rash, itching, pruritus. ALLERGY/immunology: Denies sneezes, rashes. Past Medical History Past Medical History: Hypertension, Renal Disease Additional Past Medical History / Comment(s): Kidney disease, cardiac ablation History of Any Multi-Drug Resistant Organisms: None Reported Past Surgical History: Cholecystectomy Additional Past Surgical History / Comment(s): Thyroid surgery Past Anesthesia/Blood Transfusion Reactions: No Reported Reaction Past Psychological History: No Psychological Hx Reported Smoking Status: Former smoker Past Alcohol Use History: None Reported Past Drug Use History: None Reported - Past Family History Father History Unknown: Yes Medications and Allergies Home Medications Medication Instructions Recorded Confirmed Type Atorvastatin [Lipitor] 10 mg PO DAILY 06/29/18 09/19/20 History Vit C/E/Zn/Coppr/Lutein/Zeaxan 2 cap PO DAILY 06/29/18 09/19/20 History [Preservision Areds 2 Softgel] Apixaban [Eliquis] 2.5 mg PO BID 60 Days #30 tab 09/21/20 Rx Allergies Allergy/AdvReac Type Severity Reaction Status Date / Time erythromycin base AdvReac STOMACH Verified 09/19/20 17:42 CRAMPS Sulfa (Sulfonamide AdvReac LOW GRADE Verified 09/19/20 17:42 Antibiotics) FEVER Physical Exam Vitals: Vital Signs Temp Pulse Resp BP BP Pulse Ox 09/21/20 12:00 97.9 F 80 18 104/57 96 09/21/20 08:59 97.5 F L 80 18 81/45 98 09/21/20 04:00 97 18 104/59 98 09/21/20 01:36 79 18 09/21/20 00:00 79 18 91/51 95 09/20/20 20:00 87 18 09/20/20 19:55 99.2 F 87 18 98/55 98 09/20/20 16:00 82 16 92/50 98 Intake and Output 09/21/20 09/21/20 09/21/20 06:59 14:59 22:59 Intake Total 600 Output Total 450 150 Balance -450 450 Intake: Oral 600 Output: Urine 450 150 Other: Voiding Method Indwelling Catheter Indwelling Catheter # Bowel Movements 1 Weight 68.5 kg Skin: Atrophic, intact, turgor. General: Thin build and comfortable appearance. Head: Normocephalic, atraumatic. Eyes: Symmetric. Pupils equal round. Ears: Symmetric. Hearing within normal limits. Mouth: Clear. Neck: Supple. Carotid without bruit. Cardiac: Regular rate and rhythm. Lungs: Clear anteriorly and posteriorly. Abdomen: Soft active nontender. Extremities: Normal tone. Neurological: Mental status: Alert, cooperative, pleasant. Cranial nerves: Symmetric facial tone and trapezius. Motor: Active movement all 4 limbs but legs at best antigravity. Sensation: Intact throughout. DTRs: Symmetric and equal throughout. Mobility: Did not attempt to sit or stand at this time. Results CBC & Chem 7: 09/20/20 07:32 09/21/20 07:01 Labs: Abnormal Lab Results - Last 24 Hours (Table) 09/21/20 Range/Units 07:01 Chloride 109 H (98-107) mmol/L BUN 40 H (9-20) mg/dL Creatinine 1.65 H (0.66-1.25) mg/dL Calcium 8.2 L (8.4-10.2) mg/dL Assessment and Plan (1) Chronic renal insufficiency Current Visit: Yes Status: Acute Code(s): N18.9 - CHRONIC KIDNEY DISEASE, UNSPECIFIED SNOMED Code(s): 833177006 (2) STEMI (ST elevation myocardial infarction) Current Visit: Yes Status: Acute Code(s): I21.3 - ST ELEVATION (STEMI) MYOCARDIAL INFARCTION OF [facility] SITE SNOMED Code(s): 08460106 Plan: Impression: 1. Cardiac debility with recent STEMI and stenting. 2. Chronic kidney disease. 3. History of prostate cancer. 4. Hypertension. 5. Dyslipidemia. Comments and plan: At this time PT and OT are ongoing. Safety concerns noted. Patient demonstrated ability tolerate and benefit from therapies. Have discussed possible inpatient rehab with patient and he seems agreeable if necessary.
--- NOTE | 2020-09-21 19:37 | P.PN ---
Subjective Progress Note Date: 09/21/20 Leo Marsh, is an 89-year-old male who presented to an outside hospital with a chief complaint of chest pain he was evaluated in the emergency room and had evidence of acute ST elevation myocardial infarction he was transferred to [facility] for further evaluation and treatment. Patient was brought immediately to cardiac lab, he underwent cardiac catheterization on presentation and underwent angioplasty and stent placement to the LAD, patient was admitted to telemetry floor postprocedure. Today patient is alert and oriented 3 in no apparent distress his vital examination reveals a temperature of 97.9 pulse 78 respiration 18 blood pressure 92/54 pulse ox 99% on 2 L nasal cannula. His laboratory data on presentation to [facility] revealed white blood count of 11.7 hemoglobin 12.0 platelet count 223 BUN 41 creatinine 2.2 troponin level was 4.92. His past medical history is significant for history of hypertension and history of chronic kidney disease, he also had a history of cardiac ablation in the past. Patient also has a known history of thyroid surgery for thyroid cancer, he is not on any thyroid medication at this time. On 09/21/2020 Patient was seen and examined on the medical floor, he is alert and oriented x 3 in no distress, he denies any complaints there is no fever or chills no headache or dizziness no chest pain no shortness of breath no palpitation no cough no nausea or vomiting no abdominal pain no diarrhea no blood in the stools no burning with urination no frequency or urgency and no hematuria, there is no weakness or numbness in any of the extremities no change in vision speech or gait.. Patient had episode of atrial fibrillation today, which converted back to sinus rhythm this afternoon, cardiology are following will recheck in a.m. Objective - Vital Signs Vital signs: Vital Signs Temp 97.5 F L 09/21/20 08:59 Pulse 80 09/21/20 08:59 Resp 18 09/21/20 08:59 BP 81/45 09/21/20 08:59 Pulse Ox 98 09/21/20 08:59 Intake & Output 09/20/20 09/21/20 09/21/20 18:59 06:59 18:59 Intake Total 627 240 Output Total 200 850 Balance 427 -850 240 Weight 66 kg 68.5 kg Intake: IV 150 0.9 ms 150 Oral 477 240 Output: Urine 200 850 Other: Voiding Method Indwelling Catheter Indwelling Catheter - Exam In general patient is alert and oriented ?-3 in no distress HEENT head normocephalic and atraumatic Neck is supple no JVD no goiter no lymphadenopathy no carotid bruit Chest examination is clear to auscultation no crackles no wheezing Cardiac exam reveals regular heart sounds S1 and S2 no gallops no murmurs Abdomen is soft nontender no organomegaly with normal bowel sounds Extremity exam reveals no edema no cyanosis or clubbing Neurological examination reveals no gross focal deficits - Labs CBC & Chem 7: 09/20/20 07:32 09/21/20 07:01 Labs: Abnormal Lab Results - Last 24 Hours (Table) 09/20/20 09/21/20 Range/Units 07:32 07:01 WBC 16.2 H (3.8-10.6) k/uL RBC 3.54 L (4.30-5.90) m/uL Hgb 11.1 L (13.0-17.5) gm/dL Hct 35.9 L (39.0-53.0) % MCV 101.6 H (80.0-100.0) fL Neutrophils # 13.5 H (1.3-7.7) k/uL Monocytes # 1.3 H (0-1.0) k/uL Chloride 109 H (98-107) mmol/L BUN 40 H (9-20) mg/dL Creatinine 1.65 H (0.66-1.25) mg/dL Calcium 8.2 L (8.4-10.2) mg/dL Assessment and Plan Plan: Acute ST-T wave elevation myocardial infarction Underlying history of hypertension Underlying history of chronic kidney disease History of thyroid surgery will check TSH and free T4 Patient is followed by cardiology he underwent cardiac catheterization with stent placement to the LAD He was started on Plavix and aspirin and Lipitor 80 mg daily He was also started on metoprolol 25 mg twice daily and low dose of lisinopril 2.5 mg daily Will monitor kidney function closely, BUN today is up to 40 creatinine 1.65 Will recheck in a.m.
[2020-09-21] MEDS: ATORVASTATIN 80 MG TAB PO SCH (20:00)
[2020-09-21] MEDS: METOPROLOL TARTRATE 25 MG TAB PO SCH (20:00)
[2020-09-21] MEDS ORDERED: METOPROLOL TARTRATE 25 MG TAB PO SCH (21:00)
[2020-09-22 08:04] LABS: Basophils % (A) 0 %; Eosinophils # (A) 0.3 k/uL (0-0.7); Eosinophils % (A) 3 %; HCT 37.1 % (39.0-53.0); HGB 12.5 gm/dL (13.0-17.5); Lymphocytes % (A) 9 %; MCH 33.1 pg (25.0-35.0); MCHC 33.6 g/dL (31.0-37.0); MCV 98.3 fL (80.0-100.0); Mean Platelet Volume 8.3; Monocytes # (A) 0.6 k/uL (0-1.0); Monocytes % (A) 5 %; Neutrophils # (A) 8.8 k/uL (1.3-7.7); Neutrophils % (A) 81 %; Platelet Count 241 k/uL (150-450); RBC 3.78 m/uL (4.30-5.90); RDW 12.7 % (11.5-15.5); WBC 10.9 k/uL (3.8-10.6)
[2020-09-22 08:27] LABS: Albumin 3.1 g/dL (3.5-5.0); Calcium 8.5 mg/dL (8.4-10.2); Potassium 4.5 mmol/L (3.5-5.1); Total Bilirubin 1.2 mg/dL (0.2-1.3); Total Protein 5.7 g/dL (6.3-8.2)
[2020-09-22] MEDS: APIXABAN 2.5 MG TABLET PO SCH (09:59)
[2020-09-22] MEDS: ASPIRIN 81 MG PO SCH (09:59)
[2020-09-22] MEDS: CLOPIDOGREL 75 MG TAB PO SCH (09:59)
--- NOTE | 2020-09-22 12:10 | P.PN ---
Subjective This is a very pleasant 89-year-old gentleman with a past medical history significant for AVNRT s/p ablation, nonrheumatic aortic regurgitation, left leg claudication, hyperlipidemia, hypertension, chronic kidney disease. He follows in the office with Dr. Martinez. He does not have a history of Diabetes, [place], stroke, or coronary artery disease. He presented to [facility] complaining of chest discomfort started about 6 hours before. The patient described the discomfort as a pressure across the chest with radiation to the left arm. The initial EKG revealed sinus rhythm with ST segment elevation in the anteroseptal leads. Because the patient continues to have a chest discomfort and because of the EKG which was concerning for STEMI he was transferred for emergent heart catheterization here at [facility]. Patient underwent heart ca theterization on 09/19/[address] Lopez which revealed critical disease involving the mid LAD which was stented. The procedure was performed from the right groin. Patient's home medications include flecainide 50mg BID, Cardizem 180mg daily, aspirin 81mg daily, lipitor 10mg daily. Echocardiogram 09/2017 in the office, EF 55%, normal diastolic function, mild concentric hypertrophy, moderate aortic regurgitation, mild mitral regurgitation, moderate tricuspid regurgitation 09/20/2020 Echocardiogram revealed EF 20-25%, global hypokinesis, moderate aortic regurgitation, trace mitral regurgitation, moderate tricuspid regurgitation 09/21/2020: Patient went into atrial fibrillation heart rate in the 80s. Chest x-ray revealed new left costophrenic angle representing small amount of pleural/parenchymal disease. Patient converted back to sinus rhythm in the afternoon. EKG at 3:15PM patient in sinus rhythm. 09/22/2020: Patient seen and examined at bedside, no acute distress. He is back in sinus rhythm. Telemetry reviewed, in sinus mechanism, no atrial fibrillation overnight, HR in 70s. Patient denies chest pain, shortness of breath, palpitations, lightheadedness or dizziness. Laboratory data reviewed sodium 141, potassium 4.5, BUN 48, serum creatinine 1.8, magnesium 1.2, WBC 10.9, hemoglobin 12.5, platelets 241. Blood pressure 105/57, heart rate 81, afebrile, maintaining oxygen saturation is 96% on room air. Patient currently maintained on Eliquis 2.5 mg twice a day, aspirin 81 mg daily, atorvastatin 80 mg daily, Plavix 75 mg daily, lisinopril 2.5 mg daily, metoprolol tartrate 25mg BID. GENERAL: Well-appearing, well-nourished and in no acute distress. NECK: Supple without JVD or thyromegaly. LUNGS: Breath sounds clear to auscultation bilaterally. Respiration equal and unlabored. No wheezes, rales or rhonchi. HEART: Irregular rate and rhythm without murmurs, rubs or gallops. S1 and S2 heard. EXTREMITIES: Normal range of motion, no edema. No clubbing or cyanosis. Right groin site open to air, no hematoma, Peripheral pulses intact. 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 He is potentially going to rehab on discharge. -Follow up with Dr. Martinez on discharge Objective - Vital Signs Vital signs: Vital Signs Temp 97.5 F L 09/22/20 08:00 Pulse 81 09/22/20 08:00 Resp 16 09/22/20 08:00 BP 105/57 09/22/20 08:00 Pulse Ox 96 09/22/20 08:00 Intake & Output 09/21/20 09/22/20 09/22/20 18:59 06:59 18:59 Intake Total 840 118 Output Total 300 780 Balance 540 -780 118 Weight 67.5 kg Intake: Oral 840 118 Output: Urine 300 780 Uretheral ([place]) 150 Other: Voiding Method Indwelling Catheter Indwelling Catheter # Bowel Movements 1 - Labs CBC & Chem 7: 09/22/20 07:44 09/22/20 07:44 Labs: Abnormal Lab Results - Last 24 Hours (Table) 09/22/20 09/22/20 Range/Units 07:44 07:44 WBC 10.9 H (3.8-10.6) k/uL RBC 3.78 L (4.30-5.90) m/uL Hgb 12.5 L (13.0-17.5) gm/dL Hct 37.1 L (39.0-53.0) % Neutrophils # 8.8 H (1.3-7.7) k/uL Chloride 109 H (98-107) mmol/L BUN 48 H (9-20) mg/dL Creatinine 1.85 H (0.66-1.25) mg/dL Glucose 126 H (74-99) mg/dL Total Protein 5.7 L (6.3-8.2) g/dL Albumin 3.1 L (3.5-5.0) g/dL
[2020-09-22] MEDS: METOPROLOL TARTRATE 25 MG TAB PO SCH (12:45)
--- NOTE | 2020-09-22 13:33 | P.DS ---
Providers Date of admission: 09/19/20 17:22 Expected date of discharge: 09/22/20 Attending physician: Ricardo Ambriz Consults: 09/19/20 17:22 Consult Physician Stat Consulting Provider: Tommy Lopez Consult Reason/Comments: STEMI Do you want consulting provider notified?: Already Contacted 09/19/20 18:02 Consult Physician Routine Consulting Provider: Cardiology Penny Consult Reason/Comments: Post Interventional patient Do you want consulting provider notified?: Already Contacted 09/21/20 14:30 Consult Physician Routine Consulting Provider: Fernando Reyes Consult Reason/Comments: possible rehab admission Do you want consulting provider notified?: Yes [facility] Course: Discharge diagnosis Acute ST-T wave elevation myocardial infarction Underlying history of hypertension Underlying history of chronic kidney disease History of thyroid surgery will check TSH and free T4 Paraxysmol atrial fibrillation Patient is followed by cardiology he underwent cardiac catheterization with stent placement to the LAD He was started on Plavix and aspirin and Lipitor 80 mg daily He was also started on metoprolol 25 mg twice daily and low dose of lisinopril 2.5 mg daily Patient started on eliquis per cardiology Hospital Course Leo Marsh, is an 89-year-old male who presented to an outside hospital with a chief complaint of chest pain he was evaluated in the emergency room and had evidence of acute ST elevation myocardial infarction he was transferred to [facility] for further evaluation and treatment. Patient was brought immediately to cardiac lab, he underwent cardiac catheterization on presentation and underwent angioplasty and stent placement to the LAD, patient was admitted to telemetry floor postprocedure. Today patient is alert and oriented 3 in no apparent distress his vital examination reveals a temperature of 97.9 pulse 78 respiration 18 blood pressure 92/54 pulse ox 99% on 2 L nasal cannula. His laboratory data on presentation to [facility] revealed white blood count of 11.7 hemoglobin 12.0 platelet count 223 BUN 41 creatinine 2.2 troponin level was 4.92. His past medical history is significant for history of hypertension and history of chronic kidney disease, he also had a history of cardiac ablation in the past. Patient also has a known history of thyroid surgery for thyroid cancer, he is not on any thyroid medication at this time. On 09/21/2020 Patient was seen and examined on the medical floor, he is alert and oriented x 3 in no distress, he denies any complaints there is no fever or chills no headache or dizziness no chest pain no shortness of breath no palpitation no cough no nausea or vomiting no abdominal pain no diarrhea no blood in the stools no burning with urination no frequency or urgency and no hematuria, there is no weakness or numbness in any of the extremities no change in vision speech or gait.. Patient had episode of atrial fibrillation today, which converted back to sinus rhythm this afternoon, cardiology are following will recheck in a.m. on 09/22/2020 patient is alert and oriented x 3. Patient started on eliquis for a-fib per cardiology. Heart rate has remained controlled. Patient cleared for d/c from cardiology.. Patient denies chest pain or shortness or breath. denies nausea vomiting or diarrhea. denies any urinary burning or frequency. Patient will be d/c to [facility] at [facility] Patient Condition at Discharge: Stable Plan - Discharge Summary Discharge Rx Participant: Yes New Discharge Prescriptions: New Apixaban [Eliquis] 2.5 mg PO BID 60 Days #30 tab Atorvastatin [Lipitor] 80 mg PO HS 30 Days #0 tab lisinopriL [Zestril] 2.5 mg PO DAILY tab Aspirin 81 mg PO DAILY chew Metoprolol Tartrate [Lopressor] 25 mg PO BID 30 Days #0 tab Clopidogrel [Plavix] 75 mg PO DAILY 30 Days #0 tab Continue Vit C/E/Zn/Coppr/Lutein/Zeaxan [Preservision Areds 2 Softgel] 2 cap PO DAILY Discontinued Atorvastatin [Lipitor] 10 mg PO DAILY Diltiazem HCl [Diltiazem 24Hr ER] 180 mg PO DAILY Flecainide [Tambocor] 50 mg PO BID Discharge Medication List Vit C/E/Zn/Coppr/Lutein/Zeaxan [Preservision Areds 2 Softgel] 2 cap PO DAILY 06/29/18 [History] Apixaban [Eliquis] 2.5 mg PO BID 60 Days #30 tab 09/21/20 [Rx] Aspirin 81 mg PO DAILY chew 09/22/20 [Rx] Atorvastatin [Lipitor] 80 mg PO HS 30 Days #0 tab 09/22/20 [Rx] Clopidogrel [Plavix] 75 mg PO DAILY 30 Days #0 tab 09/22/20 [Rx] Metoprolol Tartrate [Lopressor] 25 mg PO BID 30 Days #0 tab 09/22/20 [Rx] lisinopriL [Zestril] 2.5 mg PO DAILY tab 09/22/20 [Rx] Follow up Appointment(s)/Referral(s): Tatyana Hanson MD [Primary Care Provider] - 1-2 days Cholo Martinez DO [STAFF PHYSICIAN] - 1 Week
[2020-09-22 13:37] VITALS: TEMP 97.7
[2020-09-22 14:02] LABS: T4, Free (Free Thyroxine) 1.28 ng/dL (0.78-2.19)
[2020-09-22 15:37] VITALS: BP 109/62; PULSE 94; RESP 16
[2020-09-22 16:24] LABS: Chol/HDL Ratio 2.16; LDL Cholesterol,Calculated 39.2 mg/dL (0.0-131.0); VLDL Calculation 11.8 mg/dL (5.00-40.00)
== END 2020-09-22 16:51 | DRG 247 ==
LOC: EC 17:02 → 2SICU 17:22 → 3SCARD 18:29
PROVIDERS: ADMIT Internal Medicine; ATTEND Internal Medicine
PROC: B41F1ZZ Fluoroscopy of Right Lower Extremity Arteries using Low Osmolar Contrast (ICD-10-PCS; principal; 2020-09-19 17:15)
PROC: 4A023N7 Measurement of Cardiac Sampling and Pressure, Left Heart, Percutaneous Approach (ICD-10-PCS; principal; 2020-09-19 17:15)
PROC: 027034Z Dilation of Coronary Artery, One Artery with Drug-eluting Intraluminal Device, Percutaneous Approach (ICD-10-PCS; principal; 2020-09-19 17:15)
PROC: B2111ZZ Fluoroscopy of Multiple Coronary Arteries using Low Osmolar Contrast (ICD-10-PCS; principal; 2020-09-19 17:15)
DX: I21.09 ST elevation (STEMI) myocardial infarction involving other coronary artery of anterior wall (principal); N18.4 Chronic kidney disease, stage 4 (severe); I95.9 Hypotension, unspecified; I48.0 Paroxysmal atrial fibrillation; I73.9 Peripheral vascular disease, unspecified; I12.9 Hypertensive chronic kidney disease with stage 1 through stage 4 chronic kidney disease, or unspecified chronic kidney disease; E78.5 Hyperlipidemia, unspecified; I08.3 Combined rheumatic disorders of mitral, aortic and tricuspid valves; D72.829 Elevated white blood cell count, unspecified; Z79.899 Other long term (current) drug therapy; Z90.49 Acquired absence of other specified parts of digestive tract; Z87.891 Personal history of nicotine dependence; Z87.19 Personal history of other diseases of the digestive system; Z98.890 Other specified postprocedural states; Z85.46 Personal history of malignant neoplasm of prostate; Z85.850 Personal history of malignant neoplasm of thyroid; Z88.1 Allergy status to other antibiotic agents; Z88.2 Allergy status to sulfonamides
CPT/HCPCS: 36415; 71045; 80048; 80053; 80061; 83735; 83880; 84439; 84443; 84484; 85025; 85610; 85730; 93005; 93306; 93458; 99285

== ENCOUNTER 2020-10-14 11:14 | Inpatient (IN) | payer MEDICARE, BC ==
[2020-10-14] MEDS ORDERED: SODIUM CHLORIDE 0.9% 1,000 ML IV ONE ×2 (11:27→12:51)
--- NOTE | 2020-10-14 11:30 | ED ---
General Adult HPI - General Chief complaint: Weakness Stated complaint: Apnea Time Seen by Provider: 10/14/20 11:15 Source: patient, EMS, RN notes reviewed, old records reviewed Mode of arrival: EMS Limitations: altered mental status - History of Present Illness Initial comments: This is an 89-year-old male who comes to us from [facility] for periods of apnea. Also the patient has not been eating well but is only been at [facility] for one day. EMS that he is coming in for the apnea and also to be put on hospice. Patient denies any complaints denies any pain he has however only alert to person. Patient denied any headache patient denied any difficulty breathing patient any chest pain or abdominal pain. Patient denies any recent injury or trauma. At this time there is no other history available because her to family member or caregiver with the patient. - Related Data Home Medications Medication Instructions Recorded Confirmed Vit C/E/Zn/Coppr/Lutein/Zeaxan 2 cap PO DAILY 06/29/18 09/19/20 [Preservision Areds 2 Softgel] Previous Rx's Medication Instructions Recorded Apixaban [Eliquis] 2.5 mg PO BID 60 Days #30 tab 09/21/20 Aspirin 81 mg PO DAILY chew 09/22/20 Atorvastatin [Lipitor] 80 mg PO HS 30 Days #0 tab 09/22/20 Clopidogrel [Plavix] 75 mg PO DAILY 30 Days #0 tab 09/22/20 Metoprolol Tartrate [Lopressor] 25 mg PO BID 30 Days #0 tab 09/22/20 lisinopriL [Zestril] 2.5 mg PO DAILY tab 09/22/20 Allergies Allergy/AdvReac Type Severity Reaction Status Date / Time erythromycin base AdvReac STOMACH Verified 09/19/20 17:42 CRAMPS Sulfa (Sulfonamide AdvReac LOW GRADE Verified 09/19/20 17:42 Antibiotics) FEVER Review of Systems ROS Statement: Those systems with pertinent positive or pertinent negative responses have been documented in the HPI. ROS Other: All systems not noted in ROS Statement are negative. Past Medical History Past Medical History: Hypertension, Renal Disease Additional Past Medical History / Comment(s): Kidney disease, cardiac ablation History of Any Multi-Drug Resistant Organisms: None Reported Past Surgical History: Cholecystectomy Additional Past Surgical History / Comment(s): Thyroid surgery Past Anesthesia/Blood Transfusion Reactions: No Reported Reaction Past Psychological History: No Psychological Hx Reported Smoking Status: Former smoker Past Alcohol Use History: None Reported Past Drug Use History: None Reported - Past Family History Father History Unknown: Yes General Exam - General Exam Comments Initial Comments: GENERAL: Patient is well-developed and well-nourished. Patient is nontoxic and well- hydrated and is in no acute distress. ENT: Neck is soft and supple. No significant lymphadenopathy is noted. Oropharynx is clear. Moist mucous membranes. Neck has full range of motion without eliciting any pain. EYES: The sclera were anicteric and conjunctiva were pink and moist. Extraocular movements were intact and pupils were equal round and reactive to light. Eyelids were unremarkable. PULMONARY: Unlabored respirations. Good breath sounds bilaterally. No audible rales rhonchi or wheezing was noted. CARDIOVASCULAR: There is a regular rate and rhythm without any murmurs gallops or rubs. ABDOMEN: Soft and nontender with normal bowel sounds. SKIN: Skin is clear with no lesions or rashes and otherwise unremarkable. NEUROLOGIC: Patient is alert and oriented times one. Cranial nerves II through XII are grossly intact. Patient can move his arms but only minimally move his legs but he is weak symmetrically Normal speech, volume and content. Symmetrical smile. MUSCULOSKELETAL: Patient has normal upper extremity strength but bilaterally he is weak which looks chronic LYMPHATICS: No significant lymphadenopathy is noted PSYCHIATRIC: Normal psychiatric evaluation. Course Vital Signs 10/14/20 10/14/20 11:18 11:25 Temperature 97.7 F Pulse Rate 105 H Pulse Rate [ 116 H Right] Respiratory 18 18 Rate Blood Pressure 88/53 102/66 O2 Sat by Pulse 99 Oximetry Medical Decision Making - Medical Decision Making EKG shows atrial fibrillation at 98 bpm QRS is 78 QT interval 32 QTC is 385 per patient's EKG shows inverted T waves in precordial leads V2 through V6 Chest x-ray showed no acute abnormality. Hemoglobin dropped from 12.5-9.2 and 3 [address] I spoke with Dr. Ambriz he wanted to admit the patient admitted the patient wrote admitting orders. No family showed up to discuss the care with them and the patient was only alert and oriented 1 so the patient was admitted. - Lab Data Result diagrams: 10/14/20 11:39 10/14/20 11:39 Lab Results 10/14/20 10/14/20 10/14/20 Range/Units 11:39 11:39 11:39 WBC 7.7 (3.8-10.6) k/uL RBC 2.75 L (4.30-5.90) m/uL Hgb 9.2 L D (13.0-17.5) gm/dL Hct 26.9 L (39.0-53.0) % MCV 97.9 (80.0-100.0) fL MCH 33.5 (25.0-35.0) pg MCHC 34.2 (31.0-37.0) g/dL RDW 14.4 (11.5-15.5) % Plt Count 342 (150-450) k/uL MPV 7.5 Neutrophils % 69 % Lymphocytes % 16 % Monocytes % 9 % Eosinophils % 4 % Basophils % 1 % Neutrophils # 5.3 (1.3-7.7) k/uL Lymphocytes # 1.2 (1.0-4.8) k/uL Monocytes # 0.7 (0-1.0) k/uL Eosinophils # 0.3 (0-0.7) k/uL Basophils # 0.0 (0-0.2) k/uL Hypochromasia Slight Sodium 141 (137-145) mmol/L Potassium 4.6 (3.5-5.1) mmol/L Chloride 119 H (98-107) mmol/L Carbon Dioxide 17 L (22-30) mmol/L Anion Gap 5 mmol/L BUN 28 H (9-20) mg/dL Creatinine 1.67 H (0.66-1.25) mg/dL Est GFR (CKD-EPI)AfAm 41 (>60 ml/min/1.73 sqM) Est GFR (CKD-EPI)NonAf 36 (>60 ml/min/1.73 sqM) Glucose 72 L (74-99) mg/dL POC Glucose (mg/dL) (75-99) mg/dL POC Glu Invoice Control Clerk ID Calcium 8.4 (8.4-10.2) mg/dL Total Bilirubin 1.2 (0.2-1.3) mg/dL AST 50 (17-59) U/L ALT 65 H (4-49) U/L Alkaline Phosphatase 55 (38-126) U/L Total Protein 4.9 L (6.3-8.2) g/dL Albumin 2.3 L (3.5-5.0) g/dL Urine Color Yellow Urine Appearance Clear (Clear) Urine pH 5.0 (5.0-8.0) Ur Specific [place] 1.009 (1.001-1.035) Urine Protein Negative (Negative) Urine Glucose (UA) Negative (Negative) Urine Ketones Negative (Negative) Urine Blood Negative (Negative) Urine Nitrite Negative (Negative) Urine Bilirubin Negative (Negative) Urine Urobilinogen <2.0 (<2.0) mg/dL Ur Leukocyte Esterase Negative (Negative) 10/14/20 Range/Units 12:44 WBC (3.8-10.6) k/uL RBC (4.30-5.90) m/uL Hgb (13.0-17.5) gm/dL Hct (39.0-53.0) % MCV (80.0-100.0) fL MCH (25.0-35.0) pg MCHC (31.0-37.0) g/dL RDW (11.5-15.5) % Plt Count (150-450) k/uL MPV Neutrophils % % Lymphocytes % % Monocytes % % Eosinophils % % Basophils % % Neutrophils # (1.3-7.7) k/uL Lymphocytes # (1.0-4.8) k/uL Monocytes # (0-1.0) k/uL Eosinophils # (0-0.7) k/uL Basophils # (0-0.2) k/uL Hypochromasia Sodium (137-145) mmol/L Potassium (3.5-5.1) mmol/L Chloride (98-107) mmol/L Carbon Dioxide (22-30) mmol/L Anion Gap mmol/L BUN (9-20) mg/dL Creatinine (0.66-1.25) mg/dL Est GFR (CKD-EPI)AfAm (>60 ml/min/1.73 sqM) Est GFR (CKD-EPI)NonAf (>60 ml/min/1.73 sqM) Glucose (74-99) mg/dL POC Glucose (mg/dL) 76 (75-99) mg/dL POC Glu Invoice Control Clerk ID Willing, Tracy Calcium (8.4-10.2) mg/dL Total Bilirubin (0.2-1.3) mg/dL AST (17-59) U/L ALT (4-49) U/L Alkaline Phosphatase (38-126) U/L Total Protein (6.3-8.2) g/dL Albumin (3.5-5.0) g/dL Urine Color Urine Appearance (Clear) Urine pH (5.0-8.0) Ur Specific [place] (1.001-1.035) Urine Protein (Negative) Urine Glucose (UA) (Negative) Urine Ketones (Negative) Urine Blood (Negative) Urine Nitrite (Negative) Urine Bilirubin (Negative) Urine Urobilinogen (<2.0) mg/dL Ur Leukocyte Esterase (Negative) Disposition Clinical Impression: Anemia, Weakness Disposition: ADMITTED IP TO THIS HOSP Referrals: Ricardo Ambriz MD [Primary Care Provider] - 1-2 days Time of Disposition: 12:50
[2020-10-14 11:53] LABS: Appearance,Urine Clear (Clear); Bilirubin,Urine Negative (Negative); Blood,Urine Negative (Negative); Color,Urine Yellow; Glucose,Urine (UA) Negative (Negative); Ketones,Urine Negative (Negative); Leukocyte Esterase,Urine Negative (Negative); Nitrite,Urine Negative (Negative); Protein,Urine Negative (Negative); Specific Gravity,Urine 1.009 (1.001-1.035); Urobilinogen,Urine <2.0 mg/dL (<2.0)
[2020-10-14 11:54] LABS: Basophils % (A) 1 %; Eosinophils # (A) 0.3 k/uL (0-0.7); Eosinophils % (A) 4 %; HCT 26.9 % (39.0-53.0); Hypochromasia Slight; Lymphocytes # (A) 1.2 k/uL (1.0-4.8); Lymphocytes % (A) 16 %; MCH 33.5 pg (25.0-35.0); MCHC 34.2 g/dL (31.0-37.0); MCV 97.9 fL (80.0-100.0); Mean Platelet Volume 7.5; Monocytes # (A) 0.7 k/uL (0-1.0); Monocytes % (A) 9 %; Neutrophils # (A) 5.3 k/uL (1.3-7.7); Neutrophils % (A) 69 %; Platelet Count 342 k/uL (150-450); RBC 2.75 m/uL (4.30-5.90); RDW 14.4 % (11.5-15.5); WBC 7.7 k/uL (3.8-10.6)
[2020-10-14 11:59] LABS: HGB 9.2 gm/dL (13.0-17.5)
[2020-10-14 12:00] LABS: Albumin 2.3 g/dL (3.5-5.0); Calcium 8.4 mg/dL (8.4-10.2); Potassium 4.6 mmol/L (3.5-5.1); Total Bilirubin 1.2 mg/dL (0.2-1.3); Total Protein 4.9 g/dL (6.3-8.2)
--- NOTE | 2020-10-14 12:36 | XR ---
EXAMINATION TYPE: XR chest 1V portable DATE OF EXAM: 10/14/2020 COMPARISON: 09/21/2020 HISTORY: 89-year-old with shortness of breath TECHNIQUE: Single frontal view of the chest is obtained. FINDINGS: Heart size is enlarged. Atherosclerotic aorta. Perihilar and interstitial airspace opacitie s are seen. There are moderate left and small right pleural effusions. Findings are suggestive of con gestive heart failure. Follow-up to resolution is recommend. IMPRESSION: 1. Probable developing congestive heart failure. Continued follow up to resolution is recommended.
[2020-10-14 12:47] LABS: Glucose,Whole Blood 76 mg/dL (75-99)
[2020-10-14] MEDS ORDERED: SODIUM CHLORIDE 0.9% 1,000 ML IV STA (16:47)
[2020-10-14] MEDS ORDERED: ACETAMINOPHEN TAB 325 MG TAB PO PRN (16:47)
--- NOTE | 2020-10-14 16:56 | P.HPIM ---
History of Present Illness H&P Date: 10/14/20 Leo Marsh is an 89 year old male who presented to [facility] emergency room with a chief complaint of mental status changes with increased somnolence, patient was noticed by senior care staff to have episodes of apnea, he was transferred to [facility] emergency room for further evaluation and treatment. He was evaluated in the emergency room vital examination on presentation revealed a temperature of 97.7 pulse 105 respiration 18 and blood pressure 88/53 pulse ox 99% on room air Laboratory data reveals a white blood count of 7.7 hemoglobin 9.2 platelet count 342 sodium 141 potassium 4.6 chloride 119 CO2 17 BUN 28 creatinine 1.67 glucose level was 72 ALT slightly elevated at 65 albumin level low at 2.3 urine analysis was clean without any evidence of urinary tract infection. Testing in the emergency room revealed chest x-ray portable revealed developing congestive heart failure with moderate left sided pleural effusion and small right sided pleural effusion, EKG was done in the emergency room and revealed evidence of atrial fibrillation initially heart rate was at 98 subsequence he heart rate went up to 150. Patient was admitted to medical floor for further evaluation and treatment Past medical history is significant for recent acute myocardial infarction with cardiac catheterization with angioplasty and stent placement 3 weeks ago, unde rlying history of hypertension, underlying history of hyperlipidemia, underlying history of paroxysmal atrial fibrillation, underlying history of chronic kidney disease. On review of systems patient is somnolent, he opens his eyes for a few seconds and answer a question or to by yes or no and then closes his eyes again, he denies any pain or discomfort denies any chest pain or abdominal pain no nausea or vomiting no diarrhea and no urinary symptoms. Past Medical History Past Medical History: Hypertension, Renal Disease Additional Past Medical History / Comment(s): Kidney disease, cardiac ablation History of Any Multi-Drug Resistant Organisms: None Reported Past Surgical History: Cholecystectomy Additional Past Surgical History / Comment(s): Thyroid surgery Past Anesthesia/Blood Transfusion Reactions: No Reported Reaction Past Psychological History: No Psychological Hx Reported Smoking Status: Former smoker Past Alcohol Use History: None Reported Past Drug Use History: None Reported - Past Family History Father History Unknown: Yes Medications and Allergies Home Medications Medication Instructions Recorded Confirmed Type Vit C/E/Zn/Coppr/Lutein/Zeaxan 2 cap PO DAILY 06/29/18 10/14/20 History [Preservision Areds 2 Softgel] Aspirin 81 mg PO DAILY chew 09/22/20 10/14/20 Rx Atorvastatin [Lipitor] 80 mg PO HS 30 Days #0 tab 09/22/20 10/14/20 Rx Acetaminophen Tab [Tylenol] 650 mg PO Q4H PRN 10/14/20 10/14/20 History Apixaban [Eliquis] 2.5 mg PO BID 10/14/20 10/14/20 History Clopidogrel [Plavix] 75 mg PO HS@2100 10/14/20 10/14/20 History Famotidine [Pepcid] 20 mg PO DAILY@0600 10/14/20 10/14/20 History Megestrol Acetate 400 mg PO BID 10/14/20 10/14/20 History Metoprolol Tartrate [Lopressor] 75 mg PO BID 10/14/20 10/14/20 History Mirtazapine [Remeron] 15 mg PO HS 10/14/20 10/14/20 History Nystatin 100,000 Unit/ml Susp 500,000 units PO QID 10/14/20 10/14/20 History [Mycostatin Oral Susp] Sodium Bicarbonate Tab 650 mg PO Q12H 10/14/20 10/14/20 History Allergies Allergy/AdvReac Type Severity Reaction Status Date / Time erythromycin base AdvReac STOMACH Verified 10/14/20 13:03 CRAMPS Sulfa (Sulfonamide AdvReac LOW GRADE Verified 10/14/20 13:03 Antibiotics) FEVER Physical Exam Vitals: Vital Signs Temp Pulse Pulse Resp BP Pulse Ox 10/14/20 14:00 120 H 20 92/58 97 10/14/20 13:00 100 22 107/68 99 10/14/20 11:25 116 H 18 102/66 10/14/20 11:18 97.7 F 105 H 18 88/53 99 Intake and Output 10/14/20 10/14/20 10/14/20 06:59 14:59 22:59 Other: Weight 63.957 kg In general patient is somnolent, responsive, in no distress HEENT head normocephalic and atraumatic Neck is supple no JVD no goiter no lymphadenopathy no carotid bruit Chest examination is clear to auscultation no crackles no wheezing Cardiac exam reveals irregular heart sounds S1 and S2 no gallops no murmurs Abdomen is soft nontender no organomegaly with normal bowel sounds Extremity exam reveals no edema no cyanosis or clubbing Neurological examination reveals no gross focal deficits Results CBC & Chem 7: 10/14/20 11:39 10/14/20 11:39 Labs: Abnormal Lab Results - Last 24 Hours (Table) 10/14/20 10/14/20 Range/Units 11:39 11:39 RBC 2.75 L (4.30-5.90) m/uL Hgb 9.2 L D (13.0-17.5) gm/dL Hct 26.9 L (39.0-53.0) % Chloride 119 H (98-107) mmol/L Carbon Dioxide 17 L (22-30) mmol/L BUN 28 H (9-20) mg/dL Creatinine 1.67 H (0.66-1.25) mg/dL Glucose 72 L (74-99) mg/dL ALT 65 H (4-49) U/L Total Protein 4.9 L (6.3-8.2) g/dL Albumin 2.3 L (3.5-5.0) g/dL Assessment and Plan Plan: Atrial fibrillation with rapid ventricular response, patient is maintained on Eliquis 2.5 mg bid Worsening mental status with increased somnolence, cause is unclear, will check computed tomography scan of the brain to rule out intracranial bleeding. Very poor oral intake, with evidence of protein calorie malnutrition, patient is maintained on Megace suspension 400 mg twice daily Depression, patient was recently started on Remeron 15 mg at bedtime Coronary artery disease with recent myocardial infarction, with cardiac catheterization angioplasty and stent placement 3 weeks ago Underlying history of hypertension Underlying history of chronic kidney disease At this time patient will be admitted to telemetry floor He will be started on IV Cardizem drip at 5 mg/h Cardiology consultation was requested Home medications reviewed and reordered Will start on IV fluid normal saline 50 mL/h due to poor oral intake and hypotension, will monitor blood pressure closely Prognosis is guarded to due to advanced age, severity of his illness, and severe depression patient is not eating and has been depressed since the of his several weeks ago Possibility of comfort care only and hospice care was discussed with family in the emergency room however at this point they are not ready for that.
[2020-10-14] MEDS ORDERED: DILTIAZEM 125 MG in SODIUM CHLORIDE 0.9% 100 ML IV SCH (17:00)
--- NOTE | 2020-10-14 17:41 | CT ---
EXAMINATION TYPE: CT brain wo con DATE OF EXAM: 10/14/2020 HISTORY: Patient poor historian CT DLP: 1281.4 mGycm. Automated Exposure Control for Dose Reduction was Utilized. TECHNIQUE: CT scan of the head is performed without contrast. COMPARISON: CT brain February 03, 2011 FINDINGS: There is no acute intracranial hemorrhage or midline shift identified. There is moderate diffuse ventricular and sulcal prominence consistent with diffuse age-related cerebral atrophy. Ther e is moderate low-attenuation in the periventricular white matter consistent with chronic small vesse l ischemic change. The globes are intact and the visualized sinuses are clear. IMPRESSION: No acute intracranial hemorrhage or midline shift. There is moderate diffuse age-relate d cerebral atrophy and moderate chronic small vessel ischemic change identified with interval degener ative progression from 2011 study noted.
[2020-10-14 17:48] LABS: Basophils # (A) 0.1 k/uL (0-0.2); Basophils % (A) 1 %; Eosinophils # (A) 0.2 k/uL (0-0.7); Eosinophils % (A) 3 %; HCT 28.5 % (39.0-53.0); Hypochromasia Moderate; Lymphocytes # (A) 0.9 k/uL (1.0-4.8); Lymphocytes % (A) 12 %; MCH 31.7 pg (25.0-35.0); MCHC 31.6 g/dL (31.0-37.0); MCV 100.5 fL (80.0-100.0); Macrocytosis Slight; Mean Platelet Volume 7.4; Monocytes # (A) 0.4 k/uL (0-1.0); Monocytes % (A) 6 %; Neutrophils # (A) 5.2 k/uL (1.3-7.7); Neutrophils % (A) 76 %; Platelet Count 347 k/uL (150-450); RBC 2.84 m/uL (4.30-5.90); RDW 14.8 % (11.5-15.5); WBC 6.9 k/uL (3.8-10.6)
[2020-10-14] MEDS: NYSTATIN 100,000 UNIT/ML SUSP 500,000 UNIT/5 ML CUP PO SCH ×2 (18:55→21:59)
[2020-10-14] MEDS: SODIUM BICARBONATE TAB 650 MG TAB PO SCH (19:00)
[2020-10-14] MEDS: APIXABAN 2.5 MG TABLET PO SCH (20:23)
[2020-10-14] MEDS ORDERED: MIRTAZAPINE 15 MG TAB PO SCH (21:00)
[2020-10-14] MEDS ORDERED: ATORVASTATIN 80 MG TAB PO SCH (21:00)
[2020-10-14] MEDS ORDERED: METOPROLOL TARTRATE 25 MG TAB PO SCH (21:00)
[2020-10-14] MEDS ORDERED: CLOPIDOGREL 75 MG TAB PO SCH (21:00)
[2020-10-14] MEDS: MEGESTROL 400 MG/10 ML CUP PO SCH (21:56)
[2020-10-15 02:54] VITALS: TEMP 97.7
[2020-10-15] MEDS: SODIUM BICARBONATE TAB 650 MG TAB PO SCH (05:41)
[2020-10-15] MEDS ORDERED: FAMOTIDINE 20 MG TAB PO SCH (06:00)
[2020-10-15 07:25] VITALS: RESP 20
[2020-10-15 08:28] LABS: Basophils % (A) 1 %; Eosinophils # (A) 0.3 k/uL (0-0.7); Eosinophils % (A) 4 %; HCT 24.8 % (39.0-53.0); HGB 8.4 gm/dL (13.0-17.5); Hypochromasia Slight; Lymphocytes # (A) 1.2 k/uL (1.0-4.8); Lymphocytes % (A) 15 %; MCH 33.3 pg (25.0-35.0); MCHC 33.8 g/dL (31.0-37.0); MCV 98.6 fL (80.0-100.0); Macrocytosis Slight; Mean Platelet Volume 7.4; Monocytes # (A) 0.6 k/uL (0-1.0); Monocytes % (A) 7 %; Neutrophils # (A) 5.5 k/uL (1.3-7.7); Neutrophils % (A) 71 %; Platelet Count 336 k/uL (150-450); RBC 2.51 m/uL (4.30-5.90); RDW 15.1 % (11.5-15.5); WBC 7.7 k/uL (3.8-10.6)
[2020-10-15] MEDS ORDERED: VIT A,C & E-LUTEIN-MINERALS 1 EACH TAB PO SCH (09:00)
[2020-10-15] MEDS ORDERED: METOPROLOL TARTRATE 50 MG TAB PO SCH (09:00)
[2020-10-15] MEDS ORDERED: ASPIRIN 81 MG PO SCH (09:00)
[2020-10-15] MEDS: APIXABAN 2.5 MG TABLET PO SCH (09:07)
[2020-10-15] MEDS: NYSTATIN 100,000 UNIT/ML SUSP 500,000 UNIT/5 ML CUP PO SCH ×2 (09:09→16:54)
[2020-10-15 09:13] LABS: Albumin 2.3 g/dL (3.5-5.0); Calcium 8.4 mg/dL (8.4-10.2); Potassium 4.7 mmol/L (3.5-5.1); Total Bilirubin 1.3 mg/dL (0.2-1.3); Total Protein 4.9 g/dL (6.3-8.2)
--- NOTE | 2020-10-15 10:00 | P.PN ---
Subjective Progress Note Date: 10/15/20 Leo Marsh is an 89 year old male who presented to [facility] emergency room with a chief complaint of mental status changes with increased somnolence, patient was noticed by fdc staff to have episodes of apnea, he was transferred to [facility] emergency room for further evaluation and treatment. He was evaluated in the emergency room vital examination on presentation revealed a temperature of 97.7 pulse 105 respiration 18 and blood pressure 88/53 pulse ox 99% on room air Laboratory data reveals a white blood count of 7.7 hemoglobin 9.2 platelet count 342 sodium 141 potassium 4.6 chloride 119 CO2 17 BUN 28 creatinine 1.67 glucose level was 72 ALT slightly elevated at 65 albumin level low at 2.3 urine analysis was clean without any evidence of urinary tract infection. Testing in the emergency room revealed chest x-ray portable revealed developing congestive heart failure with moderate left sided pleural effusion and small right sided pleural effusion, EKG was done in the emergency room and revealed evidence of atrial fibrillation initially heart rate was at 98 subsequence he heart rate went up to 150. Patient was admitted to medical floor for further evaluation and treatment Past medical history is significant for recent acute myocardial infarction with cardiac catheterization with angioplasty and stent placement 3 weeks ago, underlying history of hypertension, underlying history of hyperlipidemia, underlying history of paroxysmal atrial fibrillation, underlying history of chronic kidney disease. On review of systems patient is somnolent, he opens his eyes for a few seconds and answer a question or to by yes or no and then closes his eyes again, he denies any pain or discomfort denies any chest pain or abdominal pain no nausea or vomiting no diarrhea and no urinary symptoms. On 10/15/2020 patient is alert and oriented 3. Patient is asleep but wakes up follows commands and answer questions. Patient remains on IV Cardizem. Heart rate does appear improved. Cardiology services have been consulted at this time patient denies chest pain or shortness of breath. Patient denies nausea vomiting or diarrhea. Patient denies any urinary burning or frequency. Objective - Vital Signs Vital signs: Vital Signs Temp 97.7 F 10/15/20 02:53 Pulse 85 10/15/20 09:05 Resp 20 10/15/20 07:24 BP 121/97 10/15/20 07:24 Pulse Ox 96 10/15/20 07:24 Intake & Output 10/14/20 10/15/20 10/15/20 18:59 06:59 18:59 Weight 63.957 kg - Exam In general patient is somnolent, responsive, in no distress HEENT head normocephalic and atraumatic Neck is supple no JVD no goiter no lymphadenopathy no carotid bruit Chest examination is clear to auscultation no crackles no wheezing Cardiac exam reveals irregular heart sounds S1 and S2 no gallops no murmurs Abdomen is soft nontender no organomegaly with normal bowel sounds Extremity exam reveals no edema no cyanosis or clubbing Neurological examination reveals no gross focal deficits - Labs CBC & Chem 7: 10/15/20 07:46 10/15/20 07:46 Labs: Abnormal Lab Results - Last 24 Hours (Table) 10/14/20 10/14/20 10/14/20 Range/Units 11:39 11:39 17:29 RBC 2.75 L 2.84 L (4.30-5.90) m/uL Hgb 9.2 L D 9.0 L (13.0-17.5) gm/dL Hct 26.9 L 28.5 L (39.0-53.0) % MCV 100.5 H (80.0-100.0) fL Lymphocytes # 0.9 L (1.0-4.8) k/uL Chloride 119 H (98-107) mmol/L Carbon Dioxide 17 L (22-30) mmol/L BUN 28 H (9-20) mg/dL Creatinine 1.67 H (0.66-1.25) mg/dL Glucose 72 L (74-99) mg/dL ALT 65 H (4-49) U/L Total Protein 4.9 L (6.3-8.2) g/dL Albumin 2.3 L (3.5-5.0) g/dL 10/15/20 10/15/20 Range/Units 07:46 07:46 RBC 2.51 L (4.30-5.90) m/uL Hgb 8.4 L (13.0-17.5) gm/dL Hct 24.8 L (39.0-53.0) % MCV (80.0-100.0) fL Lymphocytes # (1.0-4.8) k/uL Chloride 122 H (98-107) mmol/L Carbon Dioxide 14 L (22-30) mmol/L BUN 28 H (9-20) mg/dL Creatinine 1.59 H (0.66-1.25) mg/dL Glucose (74-99) mg/dL ALT 62 H (4-49) U/L Total Protein 4.9 L (6.3-8.2) g/dL Albumin 2.3 L (3.5-5.0) g/dL Assessment and Plan Plan: Atrial fibrillation with rapid ventricular response, patient is maintained on Eliquis 2.5 mg bid Worsening mental status with increased somnolence, cause is unclear. 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 Very poor oral intake, with evidence of protein calorie malnutrition, patient is maintained on Megace suspension 400 mg twice daily Depression, patient was recently started on Remeron 15 mg at bedtime Coronary artery disease with recent myocardial infarction, with cardiac catheterization angioplasty and stent placement 3 weeks ago Underlying history of hypertension Underlying history of chronic kidney disease At this time patient will be admitted to telemetry floor He will be started on IV Cardizem drip at 5 mg/h Cardiology consultation was requested Home medications reviewed and reordered Will start on IV fluid normal saline 50 mL/h due to poor oral intake and hypotension, will monitor blood pressure closely Prognosis is guarded to due to advanced age, severity of his illness, and severe depression patient is not eating and has been depressed since the of his several weeks ago Possibility of comfort care only and hospice care was discussed with family in the emergency room however at this point they are not ready for that.
[2020-10-15] MEDS: MEGESTROL 400 MG/10 ML CUP PO SCH (10:34)
[2020-10-15 10:37] VITALS: BP 93/56
--- NOTE | 2020-10-15 14:32 | CDI ---
Documentation Clarification Form Date: 10/15/2020 02:11:34 PM From: Kathleen Salazar RN CCDS Admit Date: 10/15/2020 01:47:00 PM Patient Name: Leo Marsh Visit Number: [id number] Discharge Date: ATTENTION: The Clinical Documentation Specialists (CDI) and [facility] Coding Staff appreciate your assistance in clarifying documentation. Please respond to the clarification below the line at the bottom and electronically sign. The CDI & [facility] Coding staff will review the response and follow-up if needed. Please note: Queries are made part of the Legal Health Record. If you have any questions, please contact the author of this message via ITS. Dr. Ricardo Ambriz Malnutrition is documented 7/8 H&P & 10/15, medicine progress note. Additional clarification regarding the severity of malnutrition is requested. History/Risk Factors: 89-year-old male presents to the ED for mental status changes with increased somnolence. Medical History: Recent acute PR with cardiac catheterization with angioplasty and stent placement three weeks ago, HTN, HLD, CKD and Paroxysmal atrial fibrillation. Clinical Indicators: Prognosis is guarded to due to advanced age, severity of his illness, and severe depression patient is not eating and has been depressed since the of his several weeks ago. 7/8 H&P Very poor oral intake, with evidence of protein calorie malnutrition, patient is maintained on Megace suspension 400mg twice a day. documented 7/8 H&P & 10/15, medicine progress note. Current BMI: 20.8kg Treatment: 10/14 Megace 400mg PO BID to current. Diet: 10/14 Dysphagia Level 1 pureed; [place] Thick liquids to current. Please clarify the type of malnutrition, if known: [ ] Mild Protein-Calorie Malnutrition [ ] Moderate Protein-Calorie Malnutrition [ ] Severe Protein-Calorie Malnutrition [ ] Other condition, please specify [ ] Unable to Determine (Template Last Revised: June 2020) Severe protein calorie malnutrition MTDD
[2020-10-15 16:53] VITALS: PULSE 116
--- NOTE | 2020-10-23 09:22 | P.DS ---
Providers Date of admission: 10/15/20 13:47 Expected date of discharge: 10/16/20 Attending physician: Ricardo Ambriz Consults: 10/14/20 16:49 Consult Physician Routine Consulting Provider: Phyllis Moore Consult Reason/Comments: A. fib with RVR Do you want consulting provider notified?: Yes Primary care physician: Ricardo Pb [facility] Course: Discharge diagnosis Atrial fibrillation with rapid ventricular response, patient is maintained on Eliquis 2.5 mg bid Worsening mental status with increased somnolence, cause is unclear. 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 Very poor oral intake, with evidence of protein calorie malnutrition, patient is maintained on Megace suspension 400 mg twice daily Depression, patient was recently started on Remeron 15 mg at bedtime Coronary artery disease with recent myocardial infarction, with cardiac catheterization angioplasty and stent placement 3 weeks ago Underlying history of hypertension Underlying history of chronic kidney disease Per family was decided to make patient hospice care at this time Hospital course Leo Marsh is an 89 year old male who presented to [facility] emergency room with a chief complaint of mental status changes with increased somnolence, [facility] to have episodes of apnea, he was transferred to [facility] emergency room for further evaluation and treatment. He was evaluated in the emergency room vital examination on presentation revealed a temperature of 97.7 pulse 105 respiration 18 and blood pressure 88/53 pulse ox 99% on room air Laboratory data reveals a white blood count of 7.7 hemoglobin 9.2 platelet count 342 sodium 141 potassium 4.6 chloride 119 CO2 17 BUN 28 creatinine 1.67 glucose level was 72 ALT slightly elevated at 65 albumin level low at 2.3 urine analysis was clean without any evidence of urinary tract infection. Testing in the emergency room revealed chest x-ray portable revealed developing congestive heart failure with moderate left sided pleural effusion and small right sided pleural effusion, EKG was done in the emergency room and revealed evidence of atrial fibrillation initially heart rate was at 98 subsequence he heart rate went up to 150. Patient was admitted to medical floor for further evaluation and treatment Past medical history is significant for recent acute myocardial infarction with cardiac catheterization with angioplasty and stent placement 3 weeks ago, underlying history of hypertension, underlying history of hyperlipidemia, und erlying history of paroxysmal atrial fibrillation, underlying history of chronic kidney disease. On review of systems patient is somnolent, he opens his eyes for a few seconds and answer a question or to by yes or no and then closes his eyes again, he denies any pain or discomfort denies any chest pain or abdominal pain no nausea or vomiting no diarrhea and no urinary symptoms. On 10/15/2020 patient is alert and oriented 3. Patient is asleep but wakes up follows commands and answer questions. Patient remains on IV Cardizem. Heart rate does appear improved. Cardiology services have been consulted at this time patient denies chest pain or shortness of breath. Patient denies nausea vomiting or diarrhea. Patient denies any urinary burning or frequency. On 10/16/2020 patient has been transitioned to hospice care will be admitted under hospice services Plan - Discharge Summary Discharge Rx Participant: No New Discharge Prescriptions: No Action Vit C/E/Zn/Coppr/Lutein/Zeaxan [Preservision Areds 2 Softgel] 2 cap PO DAILY Atorvastatin [Lipitor] 80 mg PO HS 30 Days #0 tab Megestrol Acetate 400 mg PO BID Apixaban [Eliquis] 2.5 mg PO BID Mirtazapine [Remeron] 15 mg PO HS Famotidine [Pepcid] 20 mg PO DAILY@0600 Clopidogrel [Plavix] 75 mg PO HS@2100 Aspirin 81 mg PO DAILY chew Acetaminophen Tab [Tylenol] 650 mg PO Q4H PRN PRN Reason: Pain Or Fever > 100.5 Nystatin 100,000 Unit/ml Susp [Mycostatin Oral Susp] 500,000 units PO QID Sodium Bicarbonate Tab 650 mg PO Q12H Metoprolol Tartrate [Lopressor] 75 mg PO BID Discharge Medication List Vit C/E/Zn/Coppr/Lutein/Zeaxan [Preservision Areds 2 Softgel] 2 cap PO DAILY 06/29/18 [History] Aspirin 81 mg PO DAILY chew 09/22/20 [Rx] Atorvastatin [Lipitor] 80 mg PO HS 30 Days #0 tab 09/22/20 [Rx] Acetaminophen Tab [Tylenol] 650 mg PO Q4H PRN 10/14/20 [History] Apixaban [Eliquis] 2.5 mg PO BID 10/14/20 [History] Clopidogrel [Plavix] 75 mg PO HS@2100 10/14/20 [History] Famotidine [Pepcid] 20 mg PO DAILY@0600 10/14/20 [History] Megestrol Acetate 400 mg PO BID 10/14/20 [History] Metoprolol Tartrate [Lopressor] 75 mg PO BID 10/14/20 [History] Mirtazapine [Remeron] 15 mg PO HS 10/14/20 [History] Nystatin 100,000 Unit/ml Susp [Mycostatin Oral Susp] 500,000 units PO QID 10/14/20 [History] Sodium Bicarbonate Tab 650 mg PO Q12H 10/14/20 [History] Follow up Appointment(s)/Referral(s): Ricardo Ambriz MD [Primary Care Provider] - 1-2 days Discharge Disposition: DISCH TO [facility]
== END 2020-10-15 16:59 | disposition hospice, inpatient (51) | DRG 280 ==
LOC: EC 11:14 → 5NMEDONC 12:51 → 3SCARD 18:48 → OBSVTOIN 10-15 13:47
PROVIDERS: ADMIT Internal Medicine; ATTEND Internal Medicine
DX: I48.0 Paroxysmal atrial fibrillation (principal); E43 Unspecified severe protein-calorie malnutrition; I21.9 Acute myocardial infarction, unspecified; I13.0 Hypertensive heart and chronic kidney disease with heart failure and stage 1 through stage 4 chronic kidney disease, or unspecified chronic kidney disease; E46 Unspecified protein-calorie malnutrition; I50.9 Heart failure, unspecified; Z51.5 Encounter for palliative care; N18.9 Chronic kidney disease, unspecified; F32.9 Major depressive disorder, single episode, unspecified; I25.10 Atherosclerotic heart disease of native coronary artery without angina pectoris; R40.0 Somnolence; E78.5 Hyperlipidemia, unspecified; G31.9 Degenerative disease of nervous system, unspecified; Z68.20 Body mass index [BMI] 20.0-20.9, adult; Z87.891 Personal history of nicotine dependence; Z79.899 Other long term (current) drug therapy; Z79.82 Long term (current) use of aspirin; Z79.02 Long term (current) use of antithrombotics/antiplatelets; Z79.01 Long term (current) use of anticoagulants
CPT/HCPCS: 36415; 70450; 71045; 80053; 81003; 83880; 85025; 93005; 96360; 99285

== ENCOUNTER 2020-10-15 16:20 | Inpatient (IN) | payer MEDICAID ==
[2020-10-15] MEDS ORDERED: ACETAMINOPHEN SUPPOSITORY 650 MG SUPP RECTAL PRN (16:42)
[2020-10-15] MEDS ORDERED: ONDANSETRON 4 MG/2 ML VIAL IVP PRN (16:42)
[2020-10-15] MEDS ORDERED: MORPHINE CONC SOLN 10mg/0.5mL ORAL SYRG SL PRN (16:45)
[2020-10-15] MEDS: SCOPOLAMINE 1.5MG/72HR PATCH TRANSDERM SCH (21:47)
[2020-10-16 06:11] VITALS: BP 110/60
[2020-10-16] MEDS: MORPHINE SULFATE 2 MG/ML SYRINGE IV PRN ×5 (07:46→23:29)
[2020-10-16] MEDS: LORazepam 2 MG/ML INJ IV PRN (08:20)
[2020-10-16 13:00] VITALS: TEMP 97.8
--- NOTE | 2020-10-16 15:29 | P.HPIM ---
History of Present Illness H&P Date: 10/16/20 Leo Marsh is an 89-year-old male who presented to [facility] emergency room due to worsening condition with generalized weakness mental status changes and poor oral intake. Patient was recently admitted to [facility] about a month ago with evidence of acute myocardial infarction and congestive heart failure, he underwent cardiac catheterization with stent placement to the LAD, he was [place] and was transferred to [facility] rehabilitation unit, patient has very poor oral intake and was refusing to eat, he was maintained on Megace and antidepressant without any significant improvement in his condition, he spent 2 weeks at [facility] rehab unit then he was transferred to [facility] on the [facility], he spent a very short period that [facility] on the [place], then he was sent back to emergency room due to severe weakness and a lmost no oral intake, he was reevaluated in the emergency room, and admitted to medical floor, subsequently family decided to proceed with comfort care only and hospice care. Past Medical History Past Medical History: Atrial Fibrillation, Coronary Artery Disease (CAD), Chest Pain / Angina, Hypertension, Renal Disease Additional Past Medical History / Comment(s): Kidney disease, cardiac ablation History of Any Multi-Drug Resistant Organisms: None Reported Past Surgical History: Cholecystectomy Additional Past Surgical History / Comment(s): Thyroid surgery Past Anesthesia/Blood Transfusion Reactions: No Reported Reaction Past Psychological History: No Psychological Hx Reported Smoking Status: Unknown if ever smoked Past Alcohol Use History: None Reported Past Drug Use History: None Reported - Past Family History Father History Unknown: Yes Medications and Allergies Home Medications Medication Instructions Recorded Confirmed Type Vit C/E/Zn/Coppr/Lutein/Zeaxan 2 cap PO DAILY 06/29/18 10/15/20 History [Preservision Areds 2 Softgel] Aspirin 81 mg PO DAILY chew 09/22/20 10/15/20 Rx Atorvastatin [Lipitor] 80 mg PO HS 30 Days #0 tab 09/22/20 10/15/20 Rx Acetaminophen Tab [Tylenol] 650 mg PO Q4H PRN 10/14/20 10/15/20 History Apixaban [Eliquis] 2.5 mg PO BID 10/14/20 10/15/20 History Clopidogrel [Plavix] 75 mg PO HS@2100 10/14/20 10/15/20 History Famotidine [Pepcid] 20 mg PO DAILY@0600 10/14/20 10/15/20 History Megestrol Acetate 400 mg PO BID 10/14/20 10/15/20 History Metoprolol Tartrate [Lopressor] 75 mg PO BID 10/14/20 10/15/20 History Mirtazapine [Remeron] 15 mg PO HS 10/14/20 10/15/20 History Nystatin 100,000 Unit/ml Susp 500,000 units PO QID 10/14/20 10/15/20 History [Mycostatin Oral Susp] Sodium Bicarbonate Tab 650 mg PO Q12H 10/14/20 10/15/20 History Allergies Allergy/AdvReac Type Severity Reaction Status Date / Time erythromycin base AdvReac STOMACH Verified 10/14/20 13:03 CRAMPS Sulfa (Sulfonamide AdvReac LOW GRADE Verified 10/14/20 13:03 Antibiotics) FEVER Physical Exam Vitals: Vital Signs Temp Pulse Resp BP Pulse Ox 10/16/20 12:00 97.8 F 120 H 15 92 L 10/16/20 08:00 13 91 L 10/16/20 04:00 88 20 110/60 90 L 10/16/20 01:07 104 H 20 10/15/20 20:00 104 H 20 118/74 90 L Intake and Output 10/15/20 10/16/20 10/16/20 22:59 06:59 14:59 Intake Total 120 120 Balance 120 120 Intake: Oral 120 120 Other: # Voids 1 1 Weight 63.95 kg 123 kg Patient somnolent, in no apparent distress, no evidence of pain or discomfort, no agitation, no evidence of seizure activity Assessment and Plan Plan: Coronary artery disease with recent angioplasty and stent placement Congestive heart failure Severe depression, patient lost his in the last 2 month Poor oral intake, with failure to thrive, with severe protein calorie mal nutrition At this time patient is admitted to medical floor under hospice Orders reviewed patient seems to be comfortable At this time his mouth is very dry without any secretions, will discontinue s copolamine patch Continue was current orders otherwise
--- NOTE | 2020-10-17 10:19 | P.PN ---
Subjective Progress Note Date: 10/17/20 Leo Marsh is an 89-year-old male who presented to [facility] emergency room due to worsening condition with generalized weakness mental status changes and poor oral intake. Patient was recently admitted to [facility] about a month ago with evidence of acute myocardial infarction and congestive heart failure, he underwent cardiac catheterization with stent placement to the LAD, he was [place] and was transferred to [facility] rehabilitation unit, patient has very poor oral intake and was refusing to eat, he was maintained on Megace and antidepressant without any significant improvement in his condition, he spent 2 weeks at [facility] rehab unit then he was transferred to [facility] on the [facility], he spent a very short period that [facility] on the [place], then he was sent back to emergency room due to severe weakness and almost no oral intake, he was reevaluated in the emergency room, and admitted to medical floor, subsequently family decided to proceed with comfort care only and hospice care. On 10/17/2020 patient is resting comfortably in bed. Patient has been admitted to hospice care. Patient currently on morphine drip. No signs of distress Objective - Vital Signs Vital signs: Vital Signs Temp 97.8 F 10/16/20 12:00 Pulse 109 H 10/17/20 04:00 Resp 15 10/17/20 04:00 BP 110/60 10/16/20 04:00 Pulse Ox 90 L 10/17/20 04:00 Intake & Output 10/16/20 10/17/20 10/17/20 18:59 06:59 18:59 Intake Total 120 Output Total 0 0 Balance 120 0 Intake: Oral 120 Output: Urine 0 0 Other: # Voids 1 0 - Exam Head normocephalic Neck supple Lungs clear to auscultation bilaterally no wheezing or crackles Heart regular rate and rhythm S1-S2, no rub or gallop Abdomen is soft nontender nondistended positive bowel sounds no hepatosplenomegaly Extremities no edema Assessment and Plan Plan: Coronary artery disease with recent angioplasty and stent placement Congestive heart failure Severe depression, patient lost his in the last 2 month Poor oral intake, with failure to thrive, with severe protein calorie malnut rition At this time patient is admitted to medical floor under hospice Orders reviewed patient seems to be comfortable At this time his mouth is very dry without any secretions, will discontinue scop olamine patch Continue was current orders otherwise
[2020-10-17] MEDS: MORPHINE SULFATE 2 MG/ML SYRINGE IV PRN ×3 (16:00→23:28)
[2020-10-18] MEDS: MORPHINE SULFATE 2 MG/ML SYRINGE IV PRN (09:26)
[2020-10-18] MEDS ORDERED: MORPHINE CONC SOLN 10mg/0.5mL ORAL SYRG PO SCH (14:30)
[2020-10-18] MEDS: MORPHINE CONC SOLN 10mg/0.5mL ORAL SYRG PO SCH (17:01)
[2020-10-18] MEDS: SCOPOLAMINE 1.5MG/72HR PATCH TRANSDERM SCH (17:02)
--- NOTE | 2020-10-18 17:30 | P.PN ---
Subjective Progress Note Date: 10/18/20 Leo Marsh is an 89-year-old male who presented to [facility] emergency room due to worsening condition with generalized weakness mental status changes and poor oral intake. Patient was recently admitted to [facility] about a month ago with evidence of acute myocardial infarction and congestive heart failure, he underwent cardiac catheterization with stent placement to the LAD, he was [place] and was transferred to [facility] rehabilitation unit, patient has very poor oral intake and was refusing to eat, he was maintained on Megace and antidepressant without any significant improvement in his condition, he spent 2 weeks at [facility] rehab unit then he was transferred to [facility] on the [facility], he spent a very short period that [facility] on the [place], then he was sent back to emergency room due to severe weakness and almost no oral intake, he was reevaluated in the emergency room, and admitted to medical floor, subsequently family decided to proceed with comfort care only and hospice care. On 10/17/2020 patient is resting comfortably in bed. Patient has been admitted to hospice care. Patient currently on morphine drip. No signs of distress On 10/18/2020 patient is resting comfortably in bed, there are no signs of agitation, no evidence of pain or discomfort, no extra secretions, no evidence of any seizure activity Objective - Vital Signs Vital signs: Vital Signs Temp 97.8 F 10/16/20 12:00 Pulse 100 10/18/20 02:00 Resp 14 10/18/20 02:00 BP 110/60 10/16/20 04:00 Pulse Ox 89 L 10/17/20 16:00 Intake & Output 10/17/20 10/18/20 10/18/20 18:59 06:59 18:59 Output Total 0 Balance 0 Weight 119 kg Output: Urine 0 - Exam Head normocephalic Neck supple Lungs clear to auscultation bilaterally no wheezing or crackles Heart regular rate and rhythm S1-S2, no rub or gallop Abdomen is soft nontender nondistended positive bowel sounds no hepatosplenomegaly Extremities no edema Assessment and Plan Plan: Coronary artery disease with recent angioplasty and stent placement Congestive heart failure Severe depression, patient lost his in the last 2 month Poor oral intake, with failure to thrive, with severe protein calorie malnutrition At this time patient is admitted to medical floor under hospice Orders reviewed patient seems to be comfortable At this time his mouth is very dry without any secretions, will discontinue scopolamine patch Continue was current orders otherwise
[2020-10-19] MEDS: MORPHINE CONC SOLN 10mg/0.5mL ORAL SYRG PO SCH ×3 (00:23→09:35)
[2020-10-19] MEDS: LORazepam 2 MG/ML INJ IV PRN (07:00)
[2020-10-19] MEDS: ATROPINE OPHTH SOLN 1% 5ML BTL SUBLINGUAL PRN ×3 (12:43→19:00)
[2020-10-19] MEDS ORDERED: ATROPINE OPHTH SOLN 1% 5ML BTL BOTH EYES SCH (13:00)
[2020-10-19] MEDS ORDERED: MORPHINE CONC SOLN 10mg/0.5mL ORAL SYRG PO PRN (13:07)
[2020-10-19] MEDS: LORazepam ORAL CONC 60 MG/30 ML BOTTLE SL SCH ×2 (15:55→18:59)
[2020-10-19] MEDS: MORPHINE CONC SOLN 10mg/0.5mL ORAL SYRG SL SCH ×3 (15:56→19:15)
[2020-10-19] MEDS ORDERED: GLYCOPYRROLATE 1 MG TAB PO SCH (16:00)
[2020-10-19 17:02] VITALS: PULSE 147; RESP 20
--- NOTE | 2020-10-20 11:43 | P.DS ---
Providers Date of admission: 10/15/20 17:03 Expected date of discharge: 10/19/20 Attending physician: Ricardo Ambriz Primary care physician: Ricardo Ambriz [facility] Course: Discharge diagnosis Coronary artery disease with recent angioplasty and stent placement Congestive heart failure Severe depression, patient lost his in the last 2 month Poor oral intake, with failure to thrive, with severe protein calorie malnutrition At this time patient is admitted to medical floor under hospice Orders reviewed patient seems to be comfortable At this time his mouth is very dry without any secretions, will discontinue scopolamine patch Continue was current orders otherwise Hospital course Leo Marsh is an 89-year-old male who presented to [facility] emergency room due to worsening condition with generalized weakness mental status changes and poor oral intake. Patient was recently admitted to [facility] about a month ago with evidence of acute myocardial infarction and congestive heart failure, he underwent cardiac catheterization with stent placement to the LAD, he was [place] and was transferred to [facility] rehabilitation unit, patient has very poor oral intake and was refusing to eat, he was maintained on Megace and antidepressant without any significant improvement in his condition, he spent 2 weeks at [facility] rehab unit then he was transferred to [facility] on the [facility] home, he spent a very short period that [facility] on the [place], then he was sent back to emergency room due to severe weakness and almost no oral intake, he was reevaluated in the emergency room, and admitted to medical floor, subsequently family decided to proceed with comfort care only and hospice care. On 10/17/2020 patient is resting comfortably in bed. Patient has been admitted to hospice care. Patient currently on morphine drip. No signs of distress On 10/18/2020 patient is resting comfortably in bed, there are no signs of agitation, no evidence of pain or discomfort, no extra secretions, no evidence of any seizure activity On 10/19/2020 patient was under comfort care. Patient at 194 Plan - Discharge Summary New Discharge Prescriptions: No Action RX: Vit C/E/Zn/Coppr/Lutein/Zeaxan [Preservision Areds 2 Softgel] 2 cap PO DAILY RX: Atorvastatin [Lipitor] 80 mg PO HS 30 Days #0 tab RX: Megestrol Acetate 400 mg PO BID Apixaban [Eliquis] 2.5 mg PO BID Mirtazapine [Remeron] 15 mg PO HS Famotidine [Pepcid] 20 mg PO DAILY@0600 RX: Clopidogrel [Plavix] 75 mg PO HS@2100 RX: Aspirin 81 mg PO DAILY chew Acetaminophen Tab [Tylenol] 650 mg PO Q4H PRN PRN Reason: Pain Or Fever > 100.5 Nystatin 100,000 Unit/ml Susp [Mycostatin Oral Susp] 500,000 units PO QID RX: Sodium Bicarbonate Tab 650 mg PO Q12H Metoprolol Tartrate [Lopressor] 75 mg PO BID Discharge Medication List RX: Vit C/E/Zn/Coppr/Lutein/Zeaxan [Preservision Areds 2 Softgel] 2 cap PO DAILY 06/29/18 [History] RX: Aspirin 81 mg PO DAILY chew 09/22/20 [Rx] RX: Atorvastatin [Lipitor] 80 mg PO HS 30 Days #0 tab 09/22/20 [Rx] Acetaminophen Tab [Tylenol] 650 mg PO Q4H PRN 10/14/20 [History] Apixaban [Eliquis] 2.5 mg PO BID 10/14/20 [History] Famotidine [Pepcid] 20 mg PO DAILY@0600 10/14/20 [History] Metoprolol Tartrate [Lopressor] 75 mg PO BID 10/14/20 [History] Mirtazapine [Remeron] 15 mg PO HS 10/14/20 [History] Nystatin 100,000 Unit/ml Susp [Mycostatin Oral Susp] 500,000 units PO QID 10/14/20 [History] RX: Clopidogrel [Plavix] 75 mg PO HS@2100 10/14/20 [History] RX: Megestrol Acetate 400 mg PO BID 10/14/20 [History] RX: Sodium Bicarbonate Tab 650 mg PO Q12H 10/14/20 [History] Discharge Disposition: - Preliminary Cause of Preliminary Cause of : Coronary artery disease and CHF
== END 2020-10-19 22:07 | disposition expired | DRG 951 ==
LOC: 3SCARD 17:03
PROVIDERS: ADMIT Internal Medicine; ATTEND Internal Medicine
DX: Z51.5 Encounter for palliative care (principal); I21.9 Acute myocardial infarction, unspecified; E43 Unspecified severe protein-calorie malnutrition; I13.0 Hypertensive heart and chronic kidney disease with heart failure and stage 1 through stage 4 chronic kidney disease, or unspecified chronic kidney disease; I48.91 Unspecified atrial fibrillation; R41.82 Altered mental status, unspecified; R53.1 Weakness; I25.10 Atherosclerotic heart disease of native coronary artery without angina pectoris; F32.9 Major depressive disorder, single episode, unspecified; N18.9 Chronic kidney disease, unspecified; I50.9 Heart failure, unspecified; R62.7 Adult failure to thrive; Z95.5 Presence of coronary angioplasty implant and graft; Z90.49 Acquired absence of other specified parts of digestive tract; Z79.82 Long term (current) use of aspirin; Z79.02 Long term (current) use of antithrombotics/antiplatelets; Z88.1 Allergy status to other antibiotic agents; Z88.2 Allergy status to sulfonamides; Z79.01 Long term (current) use of anticoagulants; Z79.899 Other long term (current) drug therapy